=== PATIENT | female | born 1950 | race Caucasian/White ===

== ENCOUNTER → 2016-07-07 | Outpatient (CLI) | payer OTHER | END | disposition home or self-care (01) | LOC: LAB 15:33 | PROVIDERS: ATTEND Obstetrics & Gynecology | DX: E07.9 Disorder of thyroid, unspecified (principal) | CPT/HCPCS: 36415; 84439; 84443; 84480; 84481 ==

== ENCOUNTER → 2016-07-12 | Outpatient (CLI) | payer OTHER ==
[2016-07-12 13:22] LABS: Basophils # (auto) 0 uL; Basophils % (auto) 0.4 % (0.0-2.0); Eosinophils # (auto) 0.1 uL; Eosinophils % (auto) 1.9 % (0.0-7.0); Hematocrit 40.5 % (36.0-46.0); Hemoglobin 13.4 g/dL (12.2-16.2); Lymphocytes # (auto) 2.2 uL; Lymphocytes % (auto) 30.1 % (10.0-50.0); Mean Corpuscular Hemoglobin 29.5 pg (28.0-32.0); Mean Corpuscular Volume 89.4 fL (80.0-100.0); Mean Platelet Volume 8.9 fL (7.4-10.4); Monocytes # (auto) 0.4 uL; Monocytes % (auto) 5.6 % (0.0-12.0); Neutrophils # (auto) 4.6 uL; Platelet Count (auto) 279 10^3/uL (140-450); White Blood Cell 7.4 10^3/uL (4.4-10.8)
== END | disposition home or self-care (01) ==
LOC: LAB 12:18
PROVIDERS: ATTEND Obstetrics & Gynecology
DX: Z01.419 Encounter for gynecological examination (general) (routine) without abnormal findings (principal)
CPT/HCPCS: 36415; 85025; 85049

== ENCOUNTER → 2016-09-13 | Outpatient (CLI) | payer OTHER ==
[~2016-09-13] MED LIST: LEVO25TA6 PO
[2016-09-13 13:13] LABS: Basophils # (auto) 0 uL; Basophils % (auto) 0.7 % (0.0-2.0); Eosinophils # (auto) 0.1 uL; Hematocrit 41.7 % (36.0-46.0); Hemoglobin 13.9 g/dL (12.2-16.2); Lymphocytes # (auto) 1.5 uL; Lymphocytes % (auto) 21.3 % (10.0-50.0); Mean Corpuscular Hemoglobin 29.9 pg (28.0-32.0); Mean Corpuscular Hgb Conc. 33.4 g/dL (32.0-36.0); Mean Corpuscular Volume 89.4 fL (80.0-100.0); Mean Platelet Volume 8.9 fL (7.4-10.4); Monocytes # (auto) 0.4 uL; Monocytes % (auto) 5.8 % (0.0-12.0); Neutrophils # (auto) 4.9 uL; Neutrophils % (auto) 70.2 % (37.0-80.0); Platelet Count (auto) 289 10^3/uL (140-450); Red Cell Distribution Width 13.4 % (11.6-16.0)
[2016-09-13 13:28] LABS: Urine Bilirubin Negative (Negative); Urine Blood Negative /uL (Negative); Urine Color Yellow (Yellow); Urine Glucose Normal (Normal); Urine Ketone Negative (Negative); Urine Urobilinogen Normal (Negative)
[2016-09-13 13:30] LABS: INR 1.02 (0.9-1.15); Partial Thromboplastin Time 30.3 sec (22.64-33.71); Prothrombin Time 10.5 sec (9.37-12.3)
[2016-09-13 13:36] LABS: Urine Nitrite POSITIVE (Negative)
[2016-09-13 13:53] LABS: Albumin 3.9 g/dL (3.4-5.0); BUN/Creatinine Ratio 12.2; Bilirubin, Total 0.7 mg/dL (0.2-1.0); Calcium 8.1 mg/dL (8.5-10.1); Potassium 3.4 mmol/L (3.5-5.1); Total Protein 9.3 g/dL (6.4-8.2)
== END | disposition home or self-care (01) ==
LOC: LAB 10:31
PROVIDERS: ATTEND Obstetrics & Gynecology
DX: Z01.811 Encounter for preprocedural respiratory examination (principal)
CPT/HCPCS: 36415; 80053; 81003; 85025; 85610; 85730; 86850; 86900; 86901

== ENCOUNTER 2016-09-16 06:13 | Inpatient (IN) | payer OTHER ==
[~2016-09-16] VITALS: Ht 170.2 cm; Wt 76.7 kg
[2016-09-16] MEDS ORDERED: ceFAZolin 1GM/50ML D5W 50 ML IV ONE (07:02)
[2016-09-16] MEDS ORDERED: DEXAMETHASONE SOD PHOS 10MG/1ML VIAL INJ ONE (07:20)
[2016-09-16] MEDS ORDERED: ONDANSETRON HCL 4 MG/2 ML VIAL ONE (07:20)
[2016-09-16] MEDS ORDERED: fentaNYL CITRATE 100 MCG/2 ML VL ONE ×2 (07:20→10:09)
[2016-09-16] MEDS ORDERED: MIDAZOLAM HCL 1MG/1ML-2 ML VIAL ONE (07:20)
[2016-09-16] MEDS ORDERED: PROPOFOL 10 MG/ML 20 ML IV ONE (07:21)
[2016-09-16] MEDS ORDERED: KETOROLAC TROMETH 60MG/2ML VIAL IM ONE (07:21)
[2016-09-16] MEDS ORDERED: PHENYLEPHRINE HCL 10 MG/ML VL ONE (07:21)
[2016-09-16] MEDS ORDERED: ROCURONIUM 10MG/ML 10ML VIAL IV ONE (07:24)
[2016-09-16] MEDS ORDERED: CONJ ESTROGENS 0.625MG/GM VAG CRM 30GM PV ONE (07:54)
[2016-09-16] MEDS ORDERED: METHYLENE BLUE 1% 1 ML VIAL IV ONE (07:54)
[2016-09-16] MEDS ORDERED: VASOPRESSIN 20 UNIT/ML ONE (07:55)
[2016-09-16] MEDS ORDERED: NEOSTIGMINE 1 MG/ML INJ (10mg/10ML VIAL) ONE (09:53)
[2016-09-16] MEDS ORDERED: GLYCOPYRROLATE 0.2 MG/ML 1ML VIAL ONE (09:53)
[2016-09-16] MEDS ORDERED: LACTATED RINGER'S 1,000 ML IV SCH (10:01)
[2016-09-16] MEDS ORDERED: MORPHINE SUL PCA 50 ML IV SCH (10:12)
[2016-09-16] MEDS ORDERED: NALOXONE HCL 0.4 MG/ML VIAL IV ONE (10:15)
[2016-09-16] MEDS ORDERED: HYDROmorphone HCL 2 MG/ML VL IV PRN (10:30)
[2016-09-16] MEDS ORDERED: ONDANSETRON HCL 4 MG/2 ML VIAL IV ONE (10:30)
[2016-09-16] MEDS ORDERED: HYDROMORPHONE PCA IN NS 50 ML IV SCH (11:00)
[2016-09-16] MEDS ORDERED: IOHEXOL 300 MG/ML 100ML BOTTLE IJ ONE (11:45)
[2016-09-16 13:00] VITALS: BP 107/67
[2016-09-16] MEDS: ceFAZolin 1GM/50ML D5W 50 ML IV SCH ×2 (13:49→21:45)
[2016-09-16 17:00] VITALS: BP 112/61
[2016-09-16 19:54] LABS: Basophils # (auto) 0 uL; Basophils % (auto) 0.1 % (0.0-2.0); Eosinophils # (auto) 0 uL; Hematocrit 35.4 % (36.0-46.0); Hemoglobin 11.9 g/dL (12.2-16.2); Lymphocytes # (auto) 0.7 uL; Mean Corpuscular Hemoglobin 29.9 pg (28.0-32.0); Mean Corpuscular Hgb Conc. 33.6 g/dL (32.0-36.0); Mean Corpuscular Volume 88.8 fL (80.0-100.0); Mean Platelet Volume 8.1 fL (7.4-10.4); Monocytes # (auto) 0.2 uL; Monocytes % (auto) 1.5 % (0.0-12.0); Neutrophils # (auto) 12.8 uL; Neutrophils % (auto) 93.4 % (37.0-80.0); Platelet Count (auto) 280 10^3/uL (140-450); Red Cell Distribution Width 13.4 % (11.6-16.0); White Blood Cell 13.8 10^3/uL (4.4-10.8)
[2016-09-16 20:00] VITALS: BP 104/57
[2016-09-16 22:00] VITALS: BP 104/57
[2016-09-16] MEDS: ONDANSETRON HCL 4 MG/2 ML VIAL IV PRN (22:17)
[2016-09-17] VITALS (7 sets, daily range): BP systolic 90–111; BP diastolic 51–75
[2016-09-17] MEDS: ceFAZolin 1GM/50ML D5W 50 ML IV SCH (06:05)
[2016-09-17 06:07] LABS: Basophils # (auto) 0 uL; Basophils % (auto) 0.1 % (0.0-2.0); Eosinophils # (auto) 0 uL; Hemoglobin 10.9 g/dL (12.2-16.2); Lymphocytes # (auto) 1.1 uL; Lymphocytes % (auto) 8.6 % (10.0-50.0); Mean Corpuscular Hemoglobin 30.1 pg (28.0-32.0); Mean Corpuscular Hgb Conc. 34.2 g/dL (32.0-36.0); Mean Corpuscular Volume 88.1 fL (80.0-100.0); Mean Platelet Volume 8.7 fL (7.4-10.4); Monocytes # (auto) 0.7 uL; Monocytes % (auto) 5.5 % (0.0-12.0); Neutrophils # (auto) 10.9 uL; Neutrophils % (auto) 85.8 % (37.0-80.0); Platelet Count (auto) 255 10^3/uL (140-450); Red Cell Distribution Width 13.5 % (11.6-16.0); White Blood Cell 12.7 10^3/uL (4.4-10.8)
[2016-09-17] MEDS: ONDANSETRON HCL 4 MG/2 ML VIAL IV PRN (11:11)
[2016-09-17] MEDS: SOD CHL 0.45% WITH 20MEQ KCL 1,000 ML IV SCH ×2 (13:30→22:14)
[2016-09-17] MEDS ORDERED: ACETAMINOPHEN 500 MG TAB PO PRN (16:00)
[2016-09-18] MEDS: SOD CHL 0.45% WITH 20MEQ KCL 1,000 ML IV SCH (04:10)
[2016-09-18 05:04] VITALS: BP 100/61
[2016-09-18 07:28] VITALS: BP 106/60
[2016-09-18 08:20] VITALS: BP 106/60
[2016-09-18 12:41] VITALS: BP 110/58
== END 2016-09-18 13:05 | disposition home or self-care (01) | DRG 743 ==
LOC: SUR 06:13 → WEST WING 06:14
PROVIDERS: ADMIT Obstetrics & Gynecology; ATTEND Obstetrics & Gynecology
PROC: 0JQC0ZZ Repair Pelvic Region Subcutaneous Tissue and Fascia, Open Approach (ICD-10-PCS; 2016-09-16)
PROC: 0JQC0ZZ Repair Pelvic Region Subcutaneous Tissue and Fascia, Open Approach (ICD-10-PCS; 2016-09-16)
PROC: 0TJB8ZZ Inspection of Bladder, Via Natural or Artificial Opening Endoscopic (ICD-10-PCS; 2016-09-16)
PROC: 0UT97ZZ Resection of Uterus, Via Natural or Artificial Opening (ICD-10-PCS; principal; 2016-09-16 07:33)
PROC: 0UTC7ZZ Resection of Cervix, Via Natural or Artificial Opening (ICD-10-PCS; 2016-09-16 07:33)
PROC: 0UQF7ZZ Repair Cul-de-sac, Via Natural or Artificial Opening (ICD-10-PCS; 2016-09-16 07:33)
DX: N81.4 Uterovaginal prolapse, unspecified (principal); N81.10 Cystocele, unspecified; E03.9 Hypothyroidism, unspecified; N81.89 Other female genital prolapse; K59.00 Constipation, unspecified; N81.5 Vaginal enterocele; Z90.49 Acquired absence of other specified parts of digestive tract; Z82.49 Family history of ischemic heart disease and other diseases of the circulatory system
CPT/HCPCS: 36415; 74177; 85025; J0690; J1100; J1885; J2250; J2405; J2704

== ENCOUNTER → 2016-11-01 | Outpatient (CLI) | payer OTHER | END | disposition home or self-care (01) | LOC: LAB 10:13 | PROVIDERS: ATTEND Internal Medicine | DX: E03.9 Hypothyroidism, unspecified (principal) | CPT/HCPCS: 36415; 84439; 84443 ==

== ENCOUNTER → 2017-03-07 | Outpatient (CLI) | payer OTHER ==
[2017-03-07 09:25] LABS: Basophils # (auto) 0 uL; Basophils % (auto) 0.7 % (0.0-2.0); Eosinophils # (auto) 0.2 uL; Eosinophils % (auto) 2.6 % (0.0-7.0); Hematocrit 39.1 % (36.0-46.0); Hemoglobin 13.4 g/dL (12.2-16.2); Lymphocytes # (auto) 1.5 uL; Lymphocytes % (auto) 22.7 % (10.0-50.0); Mean Corpuscular Hemoglobin 30.2 pg (28.0-32.0); Mean Corpuscular Hgb Conc. 34.3 g/dL (32.0-36.0); Mean Corpuscular Volume 88.1 fL (80.0-100.0); Mean Platelet Volume 7.7 fL (7.4-10.4); Monocytes # (auto) 0.5 uL; Monocytes % (auto) 6.9 % (0.0-12.0); Neutrophils # (auto) 4.5 uL; Neutrophils % (auto) 67.1 % (37.0-80.0); Nucleated Red Blood Cells % 0.1 %; Platelet Count (auto) 269 10^3/uL (140-450); Red Cell Distribution Width 14.2 % (11.6-16.0); White Blood Cell 6.8 10^3/uL (4.4-10.8)
[2017-03-07 09:44] LABS: Potassium 3.5 mmol/L (3.5-5.1)
== END | disposition home or self-care (01) ==
LOC: LAB 09:08
PROVIDERS: ATTEND Internal Medicine
DX: E03.9 Hypothyroidism, unspecified (principal); E87.6 Hypokalemia
CPT/HCPCS: 36415; 80061; 84132; 84439; 84443; 85025

== ENCOUNTER → 2018-04-26 | Outpatient (CLI) | payer OTHER, MEDICARE ==
[2018-04-26 14:01] LABS: Basophils # (auto) 0 uL; Basophils % (auto) 0.5 % (0.0-2.0); Eosinophils # (auto) 0.2 uL; Eosinophils % (auto) 3.1 % (0.0-7.0); Hemoglobin 14.2 g/dL (12.2-16.2); Lymphocytes # (auto) 1.6 uL; Lymphocytes % (auto) 24.7 % (10.0-50.0); Mean Corpuscular Hemoglobin 30.4 pg (28.0-32.0); Mean Corpuscular Hgb Conc. 33.8 g/dL (32.0-36.0); Mean Corpuscular Volume 89.9 fL (80.0-100.0); Monocytes # (auto) 0.3 uL; Monocytes % (auto) 5.3 % (0.0-12.0); Neutrophils # (auto) 4.2 uL; Neutrophils % (auto) 66.4 % (37.0-80.0); Platelet Count (auto) 276 10^3/uL (140-450); Red Blood Cells 4.67 10^6/uL (4.0-5.20); Red Cell Distribution Width 13.4 % (11.8-14.3); White Blood Cell 6.4 10^3/uL (4.4-10.8)
[2018-04-26 14:04] LABS: Urine Bacteria NONE SEEN /hpf (None Seen); Urine Blood Negative /uL (Negative); Urine Mucus FEW (None Seen); Urine Specific Gravity 1.021 (1.001-1.035); Urine WBC 4 /hpf (0 - 5)
[2018-04-26 14:16] LABS: Potassium 3.6 mmol/L (3.5-5.1)
[2018-04-26 14:27] LABS: Albumin 4.2 g/dL (3.4-5.0); Bilirubin, Total 1.1 mg/dL (0.2-1.0); Calcium 8.3 mg/dL (8.5-10.1)
== END | disposition home or self-care (01) ==
LOC: LAB 13:01
PROVIDERS: ATTEND Internal Medicine
DX: E03.9 Hypothyroidism, unspecified (principal); E78.5 Hyperlipidemia, unspecified; E83.51 Hypocalcemia; M25.50 Pain in unspecified joint
CPT/HCPCS: 36415; 80053; 80061; 81001; 82043; 84439; 84443; 85025; 85652; 86038; 86200; 86431

== ENCOUNTER → 2018-06-29 | Outpatient (CLI) | payer OTHER, MEDICARE ==
[2018-06-29 10:20] LABS: Basophils # (auto) 0 uL; Basophils % (auto) 0.7 % (0.0-2.0); Eosinophils # (auto) 0.1 uL; Eosinophils % (auto) 1.4 % (0.0-7.0); Hematocrit 40.7 % (36.0-46.0); Hemoglobin 13.8 g/dL (12.2-16.2); Lymphocytes # (auto) 1.5 uL; Lymphocytes % (auto) 22.1 % (10.0-50.0); Mean Corpuscular Hemoglobin 30.3 pg (28.0-32.0); Mean Corpuscular Hgb Conc. 33.8 g/dL (32.0-36.0); Mean Corpuscular Volume 89.4 fL (80.0-100.0); Monocytes # (auto) 0.5 uL; Monocytes % (auto) 7.1 % (0.0-12.0); Neutrophils # (auto) 4.5 uL; Neutrophils % (auto) 68.7 % (37.0-80.0); Platelet Count (auto) 364 10^3/uL (140-450); Red Blood Cells 4.55 10^6/uL (4.0-5.20); Red Cell Distribution Width 13.3 % (11.8-14.3); White Blood Cell 6.6 10^3/uL (4.4-10.8)
[2018-06-29 10:37] LABS: Urine Bacteria NONE SEEN /hpf (None Seen); Urine Blood Negative /uL (Negative); Urine Mucus FEW (None Seen); Urine Specific Gravity 1.018 (1.001-1.035); Urine WBC 2 /hpf (0 - 5)
[2018-06-29 10:41] LABS: Albumin 3.4 g/dL (3.4-5.0); Calcium 7.8 mg/dL (8.5-10.1); Potassium 3.9 mmol/L (3.5-5.1)
[2018-06-29 10:45] LABS: Bilirubin, Total 0.5 mg/dL (0.2-1.0); CRP High Sensitivity 0.18 mg/dL (< 0.3); Total Protein 7.8 g/dL (6.4-8.2)
[2018-06-29 10:49] LABS: Cholesterol 211 mg/dL (< 200); Protein, Urine 14.8 mg/dL (0.0-11.9)
[2018-06-29 10:50] LABS: HDL Cholesterol 29 mg/dL (40-59); Triglycerides 456 mg/dL (< 150)
== END | disposition home or self-care (01) ==
LOC: LAB 09:32
PROVIDERS: ATTEND Internal Medicine
DX: Z11.59 Encounter for screening for other viral diseases (principal); M06.9 Rheumatoid arthritis, unspecified; M32.9 Systemic lupus erythematosus, unspecified; E78.00 Pure hypercholesterolemia, unspecified; E03.9 Hypothyroidism, unspecified; K75.9 Inflammatory liver disease, unspecified; E83.51 Hypocalcemia; M45.0 Ankylosing spondylitis of multiple sites in spine; A15.0 Tuberculosis of lung; I10 Essential (primary) hypertension; D64.9 Anemia, unspecified; M25.50 Pain in unspecified joint; R76.8 Other specified abnormal immunological findings in serum; Z79.899 Other long term (current) drug therapy; Z72.89 Other problems related to lifestyle
CPT/HCPCS: 36415; 80053; 80061; 81001; 82570; 83970; 84156; 84439; 84443; 85025; 85652; 86141; 86200; 86431; 86704; 86706; 86708; 86803; 86812; 87340

== ENCOUNTER → 2019-03-04 | Outpatient (CLI) | payer OTHER, MEDICARE ==
[2019-03-04 10:48] LABS: Cholesterol 202 mg/dL (< 200); HDL Cholesterol 34 mg/dL (40-59); LDL Cholesterol 122 mg/dL (< 100); Triglycerides 301 mg/dL (< 150)
== END | disposition home or self-care (01) ==
LOC: LAB 09:43
PROVIDERS: ATTEND Internal Medicine
DX: E03.9 Hypothyroidism, unspecified (principal); E78.00 Pure hypercholesterolemia, unspecified
CPT/HCPCS: 36415; 80061; 84439; 84443

== ENCOUNTER → 2020-05-18 | Outpatient (CLI) | payer MEDICARE, OTHER ==
[2020-05-18 16:58] LABS: Basophils # (auto) 0 10 ^3/uL (0-0.2); Basophils % (auto) 0.3 % (0.0-2.0); Eosinophils # (auto) 0 10 ^3/uL (0-0.8); Eosinophils % (auto) 0.2 % (0.0-7.0); Hematocrit 37.2 % (36.0-46.0); Hemoglobin 12.7 g/dL (12.2-16.2); Lymphocytes # (auto) 1.3 10 ^3/uL (0.4-5.4); Lymphocytes % (auto) 24.3 % (10.0-50.0); Mean Corpuscular Hemoglobin 30.8 pg (28.0-32.0); Mean Corpuscular Hgb Conc. 34.1 g/dL (32.0-36.0); Mean Corpuscular Volume 90.2 fL (80.0-100.0); Monocytes # (auto) 0.5 10 ^3/uL (0-1.3); Monocytes % (auto) 8.9 % (0.0-12.0); Neutrophils # (auto) 3.5 10 ^3/uL (1.6-8.6); Neutrophils % (auto) 66.3 % (37.0-80.0); Platelet Count (auto) 201 10^3/uL (140-450); Red Blood Cells 4.12 10^6/uL (4.0-5.20); White Blood Cell 5.3 10^3/uL (4.4-10.8)
[2020-05-18 17:50] LABS: BUN/Creatinine Ratio 14.5; Potassium 3.6 mmol/L (3.5-5.1)
[2020-05-18 17:51] LABS: Albumin 3.6 g/dL (3.4-5.0); Bilirubin, Total 0.8 mg/dL (0.2-1.0); Calcium 7.6 mg/dL (8.5-10.1); Total Protein 7.9 g/dL (6.4-8.2)
== END | disposition home or self-care (01) ==
LOC: LAB 16:38
PROVIDERS: ATTEND Internal Medicine
DX: R50.9 Fever, unspecified (principal)
CPT/HCPCS: 36415; 80053; 84443; 85025; 85652; 87804

== ENCOUNTER → 2020-11-16 | Outpatient (CLI) | payer MEDICARE, OTHER ==
[2020-11-16 13:39] LABS: Basophils # (auto) 0 10 ^3/uL (0-0.2); Basophils % (auto) 0.5 % (0.0-2.0); Eosinophils # (auto) 0.1 10 ^3/uL (0-0.8); Eosinophils % (auto) 1.4 % (0.0-7.0); Hematocrit 38.6 % (36.0-46.0); Hemoglobin 13.1 g/dL (12.2-16.2); Lymphocytes # (auto) 1.7 10 ^3/uL (0.4-5.4); Lymphocytes % (auto) 27.6 % (10.0-50.0); Mean Corpuscular Hemoglobin 30.6 pg (28.0-32.0); Monocytes # (auto) 0.3 10 ^3/uL (0-1.3); Monocytes % (auto) 5.5 % (0.0-12.0); Neutrophils # (auto) 4.1 10 ^3/uL (1.6-8.6); Nucleated Red Blood Cells % 0.1 %; Platelet Count (auto) 259 10^3/uL (140-450); Red Cell Distribution Width 13.3 % (11.8-14.3); White Blood Cell 6.3 10^3/uL (4.4-10.8)
[2020-11-16 13:54] LABS: Urine Bacteria FEW /hpf (None Seen); Urine Blood Negative /uL (Negative); Urine Mucus FEW (None Seen); Urine WBC 13 /hpf (0 - 5)
[2020-11-16 14:07] LABS: Albumin 3.5 g/dL (3.4-5.0); Calcium 8.3 mg/dL (8.5-10.1); Potassium 3.5 mmol/L (3.5-5.1)
[2020-11-16 14:11] LABS: BUN/Creatinine Ratio 18.3; Bilirubin, Total 0.7 mg/dL (0.2-1.0); Total Protein 7.8 g/dL (6.4-8.2)
== END | disposition home or self-care (01) ==
LOC: LAB 13:11
PROVIDERS: ATTEND Internal Medicine
DX: E03.9 Hypothyroidism, unspecified (principal); E78.1 Pure hyperglyceridemia
CPT/HCPCS: 36415; 80053; 80061; 81001; 84439; 84443; 85025; 85652; 86200; 86431

== ENCOUNTER 2021-08-09 02:14 | Emergency (ER) | payer MEDICARE, OTHER ==
[~2021-08-09] VITALS: Ht 167.6 cm; Wt 67.6 kg
[2021-08-09 02:14] VITALS: BP 119/62
== END 2021-08-09 04:06 | disposition left against medical advice (07) ==
LOC: ER 02:14
DX: R05.9 Cough, unspecified (principal); R07.0 Pain in throat; H92.09 Otalgia, unspecified ear; Z53.21 Procedure and treatment not carried out due to patient leaving prior to being seen by health care provider
CPT/HCPCS: 71045

== ENCOUNTER → 2021-08-11 | Outpatient (CLI) | payer MEDICARE, OTHER ==
[2021-08-11 10:06] LABS: Urine Bacteria NONE SEEN /hpf (None Seen); Urine Blood Negative /uL (Negative); Urine Mucus FEW (None Seen); Urine Specific Gravity 1.012 (1.001-1.035); Urine WBC 2 /hpf (0 - 5)
[2021-08-11 12:32] LABS: Basophils # (auto) 0 10 ^3/uL (0-0.2); Basophils % (auto) 0.7 % (0.0-2.0); Eosinophils # (auto) 0.2 10 ^3/uL (0-0.8); Eosinophils % (auto) 3.3 % (0.0-7.0); Hematocrit 37.6 % (36.0-46.0); Hemoglobin 12.6 g/dL (12.2-16.2); Lymphocytes # (auto) 1.4 10 ^3/uL (0.4-5.4); Lymphocytes % (auto) 25.9 % (10.0-50.0); Mean Corpuscular Hemoglobin 30.1 pg (28.0-32.0); Mean Corpuscular Hgb Conc. 33.6 g/dL (32.0-36.0); Mean Corpuscular Volume 89.7 fL (80.0-100.0); Monocytes # (auto) 0.4 10 ^3/uL (0-1.3); Monocytes % (auto) 7.7 % (0.0-12.0); Neutrophils # (auto) 3.3 10 ^3/uL (1.6-8.6); Neutrophils % (auto) 62.4 % (37.0-80.0); Nucleated Red Blood Cells % 0.1 %; Red Blood Cells 4.19 10^6/uL (4.0-5.20); Red Cell Distribution Width 13.3 % (11.8-14.3); White Blood Cell 5.4 10^3/uL (4.4-10.8)
[2021-08-11 13:03] LABS: Potassium 3.4 mmol/L (3.5-5.1)
[2021-08-11 13:23] LABS: Albumin 3.7 g/dL (3.4-5.0); BUN/Creatinine Ratio 16.7; Bilirubin, Total 0.8 mg/dL (0.2-1.0); Calcium 8.5 mg/dL (8.5-10.1); Total Protein 7.5 g/dL (6.4-8.2)
== END | disposition home or self-care (01) ==
LOC: LAB 09:28
PROVIDERS: ATTEND Internal Medicine
DX: E03.9 Hypothyroidism, unspecified (principal)
CPT/HCPCS: 36415; 80053; 80061; 81001; 84439; 84443; 85025; 85652

== ENCOUNTER 2021-10-14 18:26 | Emergency (ER) | payer MEDICARE, OTHER ==
[~2021-10-14] VITALS: Ht 167.6 cm; Wt 62.6 kg
[2021-10-14 18:27] VITALS: BP 137/73
[2021-10-14] MEDS ORDERED: ASPirin 81 mg TAB PO ONE (19:00)
[2021-10-14] MEDS ORDERED: PANTOPRAZOLE 40 MG/10 ML VIAL INJ IV ONE (19:00)
== END 2021-10-14 19:26 | disposition left against medical advice (07) ==
LOC: ER 18:31
DX: R07.89 Other chest pain (principal); Z90.49 Acquired absence of other specified parts of digestive tract; Z90.710 Acquired absence of both cervix and uterus
CPT/HCPCS: 71046; 93005

== ENCOUNTER → 2022-03-04 | Outpatient (CLI) | payer MEDICARE, OTHER | END | disposition home or self-care (01) | LOC: LAB 11:19 | PROVIDERS: ATTEND Internal Medicine | DX: E03.9 Hypothyroidism, unspecified (principal); Z12.11 Encounter for screening for malignant neoplasm of colon | CPT/HCPCS: 36415; 84132; 84439; 84443 ==

== ENCOUNTER → 2022-05-25 | Outpatient (CLI) | payer MEDICARE, OTHER ==
[2022-05-25 19:08] LABS: Urine Blood TRACE /uL (Negative); Urine Specific Gravity 1.018 (1.001-1.035)
[2022-05-25 19:11] LABS: Urine Bacteria MODERATE /hpf (None Seen)
== END | disposition home or self-care (01) ==
LOC: LAB 12:46
PROVIDERS: ATTEND Internal Medicine
DX: N39.0 Urinary tract infection, site not specified (principal)
CPT/HCPCS: 81001

== ENCOUNTER → 2022-11-01 | Outpatient (CLI) | payer MEDICARE, OTHER ==
[2022-11-01 11:16] LABS: Basophils # (auto) 0 10 ^3/uL (0-0.2); Basophils % (auto) 0.4 % (0.0-2.0); Eosinophils # (auto) 0.1 10 ^3/uL (0-0.8); Eosinophils % (auto) 1.9 % (0.0-7.0); Hematocrit 37.4 % (36.0-46.0); Hemoglobin 12.7 g/dL (12.2-16.2); Lymphocytes # (auto) 1.4 10 ^3/uL (0.4-5.4); Lymphocytes % (auto) 25.1 % (10.0-50.0); Mean Corpuscular Hemoglobin 30.5 pg (28.0-32.0); Mean Corpuscular Volume 89.7 fL (80.0-100.0); Monocytes # (auto) 0.4 10 ^3/uL (0-1.3); Monocytes % (auto) 7.4 % (0.0-12.0); Neutrophils # (auto) 3.5 10 ^3/uL (1.6-8.6); Neutrophils % (auto) 65.2 % (37.0-80.0); Nucleated Red Blood Cells % 0.1 %; Red Blood Cells 4.17 10^6/uL (4.0-5.20); Red Cell Distribution Width 13.7 % (11.8-14.3); White Blood Cell 5.4 10^3/uL (4.4-10.8)
[2022-11-01 11:34] LABS: Albumin 3.5 g/dL (3.4-5.0); Calcium 8.4 mg/dL (8.5-10.1); Potassium 3.8 mmol/L (3.5-5.1)
[2022-11-01 11:40] LABS: BUN/Creatinine Ratio 19.2 (10.0-20.0); Bilirubin, Total 0.6 mg/dL (0.2-1.0); Total Protein 7.4 g/dL (6.4-8.2)
[2022-11-01 11:51] LABS: Urine Bacteria FEW /hpf (None Seen); Urine Blood TRACE /uL (Negative); Urine Mucus FEW (None Seen); Urine WBC 89 /hpf (0 - 5)
== END | disposition home or self-care (01) ==
LOC: LAB 10:37
PROVIDERS: ATTEND Internal Medicine
DX: E03.9 Hypothyroidism, unspecified (principal)
CPT/HCPCS: 36415; 80053; 80061; 81001; 84439; 84443; 85025; 85652; 86200; 86431

== ENCOUNTER → 2023-05-01 | Outpatient (CLI) | payer MEDICARE, OTHER | END | disposition home or self-care (01) | LOC: LAB 09:42 | PROVIDERS: ATTEND Internal Medicine | DX: E03.9 Hypothyroidism, unspecified (principal); E83.51 Hypocalcemia | CPT/HCPCS: 36415; 82310; 83970; 84439; 84443 ==

== ENCOUNTER → 2024-02-05 | Outpatient (CLI) | payer MEDICARE, OTHER ==
[2024-02-05 11:04] LABS: Basophils # (auto) 0 10 ^3/uL (0-0.2); Basophils % (auto) 0.4 % (0.0-2.0); Eosinophils # (auto) 0.1 10 ^3/uL (0-0.8); Eosinophils % (auto) 1.4 % (0.0-7.0); Hematocrit 35.9 % (36.0-46.0); Hemoglobin 12.2 g/dL (12.2-16.2); Lymphocytes # (auto) 1.2 10 ^3/uL (0.4-5.4); Lymphocytes % (auto) 21.1 % (10.0-50.0); Mean Corpuscular Hemoglobin 31.2 pg (28.0-32.0); Mean Corpuscular Hgb Conc. 33.9 g/dL (32.0-36.0); Monocytes # (auto) 0.5 10 ^3/uL (0-1.3); Monocytes % (auto) 9.4 % (0.0-12.0); Neutrophils # (auto) 3.9 10 ^3/uL (1.6-8.6); Neutrophils % (auto) 67.7 % (37.0-80.0); Nucleated Red Blood Cells % 0.1 %; Red Cell Distribution Width 13.6 % (11.8-14.3); White Blood Cell 5.8 10^3/uL (4.4-10.8)
[2024-02-05 11:13] LABS: Urine Bacteria FEW /hpf (None Seen); Urine Blood Negative /uL (Negative); Urine Color Yellow (Yellow); Urine Mucus FEW (None Seen); Urine Protein, UAD TRACE (Negative); Urine Urobilinogen Normal (Negative); Urine WBC 9 /hpf (0 - 5); Urine pH 5.5 (5.0-9.0)
[2024-02-05 11:15] LABS: Urine Clarity Hazy (Clear)
[2024-02-05 11:57] LABS: Alanine Aminotransferase 10 U/L (7-40); Albumin 4.2 g/dL (3.2-4.8); Alkaline Phosphatase 89 U/L (46-116); Anion Gap 5 (5-15); Aspartate Aminotransferase 13 U/L (13-40); BUN/Creatinine Ratio 14.8 (10.0-20.0); Blood Urea Nitrogen 12 mg/dL (9-23); Calcium 9.1 mg/dL (8.7-10.4); Carbon Dioxide 30 mmol/L (20-30); Chloride 106 mmol/L (98-107); Cholesterol 185 mg/dL (< 200); Glucose 100 mg/dL (74-106); HDL Cholesterol 36 mg/dL (40-59); LDL Cholesterol 126 mg/dL (< 100); Potassium 3.8 mmol/L (3.5-5.1); Sodium 141 mmol/L (136-145); Triglycerides 135 mg/dL (< 150)
[2024-02-05 11:58] LABS: Bilirubin, Total 0.9 mg/dL (0.2-1.0); Total Protein 7.3 g/dL (5.7-8.2)
[2024-02-05 12:01] LABS: Erythrocyte Sedimentation Rate 58 mm/hr (0-20)
== END | disposition home or self-care (01) ==
LOC: LAB 10:22
PROVIDERS: ATTEND Internal Medicine
DX: Z12.11 Encounter for screening for malignant neoplasm of colon (principal); E03.9 Hypothyroidism, unspecified
CPT/HCPCS: 36415; 80053; 80061; 81001; 84439; 84443; 85025; 85652

== ENCOUNTER 2024-08-30 07:25 | Day surgery (SDC) | payer MEDICARE, OTHER ==
[2024-08-23 15:10] LABS: Urine Bacteria None Seen /hpf (None Seen)
[2024-08-23 15:18] LABS: Basophils # (auto) 0 10 ^3/uL (0-0.2); Basophils % (auto) 0.5 % (0.0-2.0); Eosinophils # (auto) 0.1 10 ^3/uL (0-0.8); Eosinophils % (auto) 1.4 % (0.0-7.0); Hematocrit 36.3 % (36.0-46.0); Hemoglobin 12.4 g/dL (12.2-16.2); Lymphocytes # (auto) 1.3 10 ^3/uL (0.4-5.4); Lymphocytes % (auto) 21.3 % (10.0-50.0); Mean Corpuscular Hemoglobin 30.7 pg (28.0-32.0); Mean Corpuscular Volume 90.2 fL (80.0-100.0); Monocytes # (auto) 0.6 10 ^3/uL (0-1.3); Monocytes % (auto) 9.9 % (0.0-12.0); Neutrophils # (auto) 4.1 10 ^3/uL (1.6-8.6); Neutrophils % (auto) 66.9 % (37.0-80.0); Platelet Count (auto) 233 10^3/uL (140-450); Red Blood Cells 4.02 10^6/uL (4.0-5.20); Red Cell Distribution Width 14.1 % (11.8-14.3); White Blood Cell 6.2 10^3/uL (4.4-10.8)
[2024-08-23 15:32] LABS: INR 0.99 (0.9-1.15); Partial Thromboplastin Time 30.1 SEC (24.5-34.5); Prothrombin Time 10.5 sec (9.3-11.8)
[2024-08-23 15:52] LABS: Urine Blood Negative /uL (Negative); Urine Clarity Clear (Clear); Urine Color Yellow (Yellow); Urine Mucus FEW (None Seen); Urine Protein, UAD TRACE (Negative); Urine Specific Gravity 1.026 (1.001-1.035); Urine Squamous Epithelial Cell FEW /hpf (<5); Urine Urobilinogen Normal (Negative); Urine WBC 1 /HPF (0-5); Urine pH 5.5 (5.0-9.0)
[2024-08-23 16:08] LABS: Alkaline Phosphatase 81 U/L (46-116); Anion Gap 5 (5-15); BUN/Creatinine Ratio 22.1 (10.0-20.0); Blood Urea Nitrogen 19 mg/dL (9-23); Chloride 102 mmol/L (98-107); Glucose 96 mg/dL (74-106); Potassium 3.9 mmol/L (3.5-5.1); Sodium 139 mmol/L (136-145); Total Protein 7.3 g/dL (5.7-8.2)
[2024-08-23 16:09] LABS: Albumin 4.1 g/dL (3.2-4.8)
[2024-08-23 16:10] LABS: Aspartate Aminotransferase 16 U/L (13-40); Bilirubin, Total 0.4 mg/dL (0.2-1.0)
[2024-08-23 16:12] LABS: Alanine Aminotransferase 9 U/L (7-40); Carbon Dioxide 32 mmol/L (20-31)
[~2024-08-30] VITALS: Ht 167.6 cm; Wt 60.8 kg
[2024-08-30] MEDS ORDERED: KETAMINE 50mg/ML 1ml syringe ONE (08:40)
[2024-08-30] MEDS ORDERED: MIDAZOLAM HCL 2MG/2ML 2ml VIAL (1mg/ml) ONE (08:41)
[2024-08-30] MEDS ORDERED: SODIUM CHLORIDE LOCK 10 ML ONE (08:41)
[2024-08-30] MEDS ORDERED: fentaNYL CITRATE 100 MCG/2 ML VL ONE (08:41)
[2024-08-30] MEDS ORDERED: ONDANSETRON HCL 4 MG/2 ML VIAL ONE (08:41)
[2024-08-30] MEDS ORDERED: PROPOFOL 10 MG/ML 20 ML IV ONE (08:41)
[2024-08-30] MEDS ORDERED: SIMETHICONE 40 MG/0.6 ML ORAL DROP ONE (08:55)
[2024-08-30] MEDS ORDERED: LIDOCAINE VISCOUS 2% 15ML UD ONE (08:55)
[2024-08-30 09:18] VITALS: PULSE 71; RESP 14; TEMP 97.2; O2SAT 100
[2024-08-30 09:45] VITALS: BP 106/60; PULSE 71; RESP 17; O2SAT 71
--- NOTE | 2024-08-30 10:08 | DVHOP2 ---
Operative Report DATE OF OPERATION: 08/30/24 PROCEDURE: Upper Endoscopy with biopsy. PREOPERATIVE INDICATION: The patient is a 73 -year-old female undergoing endoscopy for GERD and dyspepsia POSTOPERATIVE DIAGNOSES: 1. Rsli-[id number]-zeoowjkm gastritis with hyperemia erythema and mucosal nodularity from which biopsies were obtained PROCEDURE PERFORMED BY: Fozia Richardson GI NURSE: Eduarda SCOPE: Olympus videoendoscope. ASA CLASS: 2 PREOPERATIVE MEDICATIONS: Mac sedation, Dr. Estrada PROCEDURE IN DETAIL: After obtaining an informed consent, the patient was placed on left lateral decubitus position. The patient was then sedated with the above medications. A bite block was placed between her teeth. The endoscope was then passed through the oropharynx, into the esophagus, and through the stomach and pylorus up to the second and third part of the duodenum. The endoscope was then withdrawn. The 2nd and 3rd part of the duodenum and the duodenal bulb were normal. Duodenal biopsies were obtained. The pre-pyloric area antrum and body showed [id number] gastritis with hyperemia erythema and superficial mucosal nodularity. On retroflexion the fundus and cardia were normal. Patient had a somewhat J- shaped stomach. Gastric biopsies were obtained. The endoscope was then withdrawn into distal esophagus where the patient had no significant hiatal hernia and no esophagitis The remaining distal and proximal esophagus and oropharynx were unremarkable The patient tolerated the procedure well without difficulty. COMPLICATIONS : None SPECIMENS: Duodenal biopsies Gastric biopsies DISPOSITION: Stable D/C to home PLAN: 1. Await for biopsy result 2. Will place pt on Protonix 40 mg p.o. daily 3. Trial of Carafate 1 g p.o. q.h.s. 4. DC aspirin NSAIDs smoking alcohol 5. Resume GI soft diet advance as tolerated 6. Outpatient follow up with me in 4-6 weeks to review results and discuss further management FOZIA RICHARDSON MD Aug 30, 2024 10:08
--- NOTE | 2024-08-30 10:11 | DVHOP2 ---
Operative Report DATE OF OPERATION: 08/30/24 PROCEDURE: Diagnostic Colonoscopy. PREOPERATIVE INDICATION: The patient is a 73 -year-old female undergoing colonoscopy with change in bowel habit for colon cancer screening POSTOPERATIVE DIAGNOSES: 1. Moderate left colon diverticular disease with multiple wide mouth diverticu lar openings noted 2. Trace to 1+ internal hemorrhoids otherwise essentially completely normal colonoscopy examination up to the cecum and terminal ileum PROCEDURE PERFORMED BY: Fozia Richardson M.D. SCOPE: Olympus videocolonoscope. ASA CLASS: 2. PREOPERATIVE MEDICATIONS: Dr. Sean Collier PROCEDURE IN DETAIL: After obtaining an informed consent, the patient was placed on left lateral decubitus position. She was then sedated with the above medications. A rectal examination was performed that was normal. The colonoscope was then passed through the anus into the rectosigmoid and through the descending, transverse, and ascending colon up to the cecum with visualization of the appendiceal orifice, base of the cecum and the ileocecal valve. The colonoscope was then withdrawn. The distal 5-10 cm of the terminal ileum were normal No polyps or masses were seen. There was no colitis. Patient had moderate left colon diverticular disease. There was multiple wide-mouth diverticular openings both in the descending and the sigmoid colon area. On retroflexion and straight on view she had trace to 1+ internal hemorrhoids. The patient tolerated the procedure well without difficulty. WITHDRAWAL TIME: 7 minute QUALITY OF THE PREP: [place] Bowel Prep score: 9. COMPLICATIONS : None SPECIMENS: None DISPOSITION: Stable D/C to home PLAN: 1. Repeat colonoscopy in 10 years 2. Resume GI soft diet advance as tolerated 3. Increase fluid and fiber intake 4. Outpatient follow up with me in 4-6 weeks to review results and discuss further management FOZIA RICHARDSON MD Aug 30, 2024 10:11
== END 2024-08-30 10:00 | disposition home or self-care (01) ==
LOC: GI 07:25
PROVIDERS: ATTEND Internal Medicine Gastroenterology
DX: R19.4 Change in bowel habit (principal); K57.30 Diverticulosis of large intestine without perforation or abscess without bleeding; K64.0 First degree hemorrhoids; K29.50 Unspecified chronic gastritis without bleeding; K31.A0 Gastric intestinal metaplasia, unspecified; K21.9 Gastro-esophageal reflux disease without esophagitis; F17.200 Nicotine dependence, unspecified, uncomplicated; B96.81 Helicobacter pylori [H. pylori] as the cause of diseases classified elsewhere; N18.1 Chronic kidney disease, stage 1; E03.9 Hypothyroidism, unspecified; Z98.890 Other specified postprocedural states
CPT/HCPCS: 36415; 43239; 45378; 80053; 81001; 85025; 85610; 85730; 88305; 88312; 88342; J2250; J2405; J2704; J3010; J7030

== ENCOUNTER 2024-09-02 17:16 | Inpatient (IN) | payer MEDICARE, OTHER ==
[~2024-09-02] VITALS: Ht 167.6 cm; Wt 64.8 kg
--- NOTE | 2024-09-02 17:50 | ED.PDOC ---
HPI Comments HPI: 73-year-old female presents with a chief complaint of midsternal chest pain, SOB, bilateral feet and hand hand numbness which has resolved prior to my evaluation, and chills. Patient reports that she currently does not have chest pain at this time. Patient mentions that the SOB is constant, but the chest pain is intermittent. Patient does not require supplemental oxygen, and is currently sating at 100% on room air. That is not go to the doctor much. PAST MEDICAL HISTORY: ANXIETY, THYROID DISEASE PAST SURGICAL HISTORY: CHOLECYSTECTOMY, HYSTERECTOMY, ENDOSCOPY, COLONOSCOPY SOCIAL HISTORY: NONE ALLERGIES: NONE REPORTED HPI: Poor Historian. REVIEW OF SYSTEMS: CONSTITUTIONAL: Denies acute: fever, diaphoresis, chills, generalized weakness. HEAD: Denies acute: headache, photophobia Eyes: Denies acute: Double vision, vision loss, eye pain, eye discharge. EARS: Denies acute: tinnitus, hearing loss, ear discharge, ear pain, THROAT: Denies acute: sore throat, swelling, difficulty swallowing , pain with swallowing, change in voice. NECK: Denies acute: neck pain, neck swelling, stiff neck. HEART: Denies acute : , palpitations, LUNGS: Denies acute: wheezing, cough, hemoptysis ABDOMEN: Denies acute: abdominal pain, Nausea, Vomiting, diarrhea, melena , hematemesis, hematochezia SKIN: Denies acute: rash, redness, lesions, itchiness. EXTREMITIES: Denies acute: calf pain, weakness, denies pain in extremity. Denies acute: Low back pain. Neuro: Denies acute: focal neurological deficit, motor or sensory focal neurological deficit, tremors, seizure like activity, confusion, dizziness, change in mental status, loss of bowel or bladder function, cauda equina like symptoms. : Denies acute: dysuria, hematuria, flank pain, increase in urinary frequency. PSYCH: Denies acute: hallucination, suicidal ideation, homicidal ideation. FEMALE: Denies acute: abnormal vaginal bleeding, foul odor, unusual discharge. PHYSICAL EXAM: General: no acute distress, awake and alert. Head: normocephalic, atraumatic. Neck: supple, trachea is midline, no swelling. Throat: Normal phonation. Eyes:, no erythema, no purulent discharge, no proptosis, no icterus. Heart: regular rate, regular rhythm, no significant murmur appreciated. Lungs: no apparent respiratory distress, Able to speak in full sentences. No wheezing, no rhonchi, no crackles. No stridors Clear to auscultation bilaterally. Abdomen: non tender to palpation, non distended, soft, no guarding, no rebound, + bowel sounds. Neuro: Awake, Alert, oriented to name, self, situation, follows commands GCS=15. Speech is normal. Skin: no petechia, no purpura, no cyanosis, non-pale, not jaundice. Lower extremities: --no - Pitting edema no deformity, no focal swelling, no calf TTP. Makes eye contact. moves all four extremities. Face: no apparent facial droop. . Ambulating in the ED independently. 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 Was a procedure done?: No CP Differential Dx Differential Diagnosis: N/A Differential Diagnosis: Other (Ddx include but not limitied to gastritis, musculoskeletal pain, radiculopathy, atypical chest pain, dissection, aneurysm, ACS, unstable angina, hiatal hernia, GERD, anxiety, costochondritis, PE, pneumothroax, neoplasm, cardiac ischemia, drug abuse, anemia.) X-Ray, Labs, Meds, VS Vital Signs Date Time Temp Pulse Resp B/P (MAP) Pulse Ox O2 Delivery O2 Flow Rate FiO2 09/02/24 17:29 98.0 93 17 131/81 (98) 100 09/02/24 17:24 91 Lab Test 09/02/24 18:53 09/02/24 17:47 09/02/24 17:45 09/02/24 17:39 Range/Units Troponin I High Sensitivity 11 8 </=34 ng/L Thyroid Stimulating Hormone (TSH) 8.72 H 0.55-4.78 uIU/mL Urine Color Colorless Yellow Urine Clarity Clear Clear Urine pH 5.5 5.0-9.0 Urine Specific [place] 1.003 1.001-1.035 Urine Protein Negative Negative Urine Ketones Negative Negative Urine Blood Negative Negative /uL Urine Nitrite Negative Negative Urine Bilirubin Negative Negative Urine Urobilinogen Normal Negative mg/dL Urine Leukocyte Esterase Negative Negative /uL Urine RBC <1 0 - 4 /hpf Urine Microscopic WBC < 1 0-5 /HPF Urine Squamous Epithelial Cells Few <5 /hpf Urine Bacteria None seen None Seen /hpf Urine Glucose Normal Normal mg/dL Influenza Type A Antigen Negative Negative Influenza Type B Antigen Negative Negative SARS-CoV-2 Antigen (Rapid) Negative NEGATIVE White Blood Count 6.7 4.4-10.8 10^3/uL Red Blood Count 3.98 L 4.0-5.20 10^6/uL Hemoglobin 12.6 12.2-16.2 g/dL Hematocrit 35.5 L 36.0-46.0 % Mean Corpuscular Volume 89.3 80.0-100.0 fL Mean Corpuscular Hemoglobin 31.6 28.0-32.0 pg Mean Corpuscular Hemoglobin Concent 35.4 32.0-36.0 g/dL Red Cell Distribution Width 13.6 11.8-14.3 % Platelet Count 238 140-450 10^3/uL Mean Platelet Volume 8.6 6.9-10.8 fL Neutrophils (%) (Auto) 64.3 37.0-80.0 % Lymphocytes (%) (Auto) 25.7 10.0-50.0 % Monocytes (%) (Auto) 8.9 0.0-12.0 % Eosinophils (%) (Auto) 0.8 0.0-7.0 % Basophils (%) (Auto) 0.3 0.0-2.0 % Neutrophils # (Auto) 4.3 1.6-8.6 10 ^3/uL Lymphocytes # (Auto) 1.7 0.4-5.4 10 ^3/uL Monocytes # (Auto) 0.6 0-1.3 10 ^3/uL Eosinophils # (Auto) 0.1 0-0.8 10 ^3/uL Basophils # (Auto) 0 0-0.2 10 ^3/uL Nucleated Red Blood Cells 0.1 % Sodium Level 140 136-145 mmol/L Potassium Level 3.3 L 3.5-5.1 mmol/L Chloride Level 103 98-107 mmol/L Carbon Dioxide Level 27 20-31 mmol/L Anion Gap 10 5-15 Blood Urea Nitrogen 12 9-23 mg/dL Creatinine 0.76 0.550-1.02 mg/dL Glomerular Filtration Rate Calc 84 >90 mL/min BUN/Creatinine Ratio 15.8 10.0-20.0 Serum Glucose 113 H 74-106 mg/dL Calcium Level 9.4 8.7-10.4 mg/dL Magnesium Level 2.2 1.6-2.6 mg/dL Total Bilirubin 0.6 0.2-1.0 mg/dL Aspartate Amino Transferase (AST) 19 13-40 U/L Alanine Aminotransferase (ALT) 18 7-40 U/L Alkaline Phosphatase 81 46-116 U/L B-Type Natriuretic Peptide 15.48 0-100 pg/mL Total Protein 7.2 5.7-8.2 g/dL Albumin 4.3 3.2-4.8 g/dL Current Medications Medications (Trade) Dose Ordered Sig/Lazaro Route Start Time Stop Time Status Last Admin Ceftriaxone Sodium 50 ml @ 100 mls/hr ONCE ONCE IV 09/02/24 18:45 09/02/24 19:14 DC 09/02/24 22:46 [place] [id number] Ph: [phone] DIAGNOSTIC IMAGING Diagnostic Imaging Report : [id number] Signed PATIENT: ANDREW NGUYEN ACCT: [id number] UNIT: [id number] : 1950 LOC: OVERFLOW ROOM / BED: [facility] [place] / A AGE / SEX: 73 / F ADM STATUS: ADM IN SERVICE 01 ORDERING PHYSICIAN: ARELIS SMITH PROCEDURE(s): HWOCT - HEAD WITHOUT CONTRAST REASON: Upper and lower extremity intermittent numbness ORDER NUMBER(s): [id number], ACCESSION NUMBER(s): [id number] CT HEAD WITHOUT CONTRAST INDICATION: Upper and lower extremity intermittent numbness EXAM DATE: 09/02/2024 08:08 PM COMPARISON: None RADIATION DOSE: CTDIvol: 50.55 mGy, DLP: 911.35 mGy*cm PROCEDURE: CT scans of the head were obtained from the vertex to the skull base. Sagittal and coronal reconstructions were provided. All CT scans at this medical facility are performed using dose modulation techniques as appropriate to a performed exam including the following: Automated exposure control was utilized; adjustment of the MA and/or KV according to patient size; and use of iterative reconstruction technique. FINDINGS: . There are atrophic changes which appear to be more prominent in the temporal lobes. There is no evidence for stroke. 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 There are no midline shifts or focal mass effect or evidence for intracranial hemorrhage. Paranasal sinuses and mastoid air cells are very well aerated and unremarkable. Internal auditory canals and external auditory canals and middle ears are unremarkable. Calvarium is intact. Midline structures are unremarkable including the pituitary the hippocampal structures are symmetric. IMPRESSION: 1. Mild cortical atrophy which appears to be most prominent in the temporal lobes bilaterally. No acute findings. Patient May benefit from MRI exam ATED BY: RAGHAVENDRA WAGNER MD DICTATED DATE/TIME: 09/02/242047 SIGNED BY: RAGHAVENDRA WAGNER MD SIGNED DATE/TIME: 09/02/242047 CC: [place] [id number] Ph: [phone] DIAGNOSTIC IMAGING Diagnostic Imaging Report : [id number] Signed PATIENT: ANDREW NGUYEN ACCT: [id number] UNIT: [id number] : 1950 LOC: ER ROOM / BED: / AGE / SEX: 73 / F ADM STATUS: REG ER SERVICE 36 ORDERING PHYSICIAN: NESSA FERNANDEZ DO PROCEDURE(s): CXRP - CHEST PORTABLE REASON: cp ORDER NUMBER(s): [id number], ACCESSION NUMBER(s): [id number] EXAM: XR Chest, 1 View CLINICAL INDICATION: cp TECHNIQUE: Frontal view of the chest. COMPARISON: CHEST XRAY 1 VIEW on DOS: 08/09/21 FINDINGS: LUNGS AND PLEURAL SPACES: Right basilar atelectasis or pneumonia. No pneumothorax. HEART: Unremarkable. No cardiomegaly. MEDIASTINUM: Unremarkable. Normal mediastinal contour. BONES/JOINTS: Unremarkable. No acute fracture. OTHER FINDINGS: . IMPRESSION: Right basilar atelectasis or pneumonia. ATED BY: EMORY HEATON MD DICTATED DATE/TIME: 09/02/241815 SIGNED BY: EMORY HEATON MD SIGNED DATE/TIME: 09/02/241815 CC: Time of 1ST Reevaluation: 18:04 Reevaluation 1ST: Unchanged Patient Education/Counseling: Diagnosis, Treatment Family Education/Counseling: Other Comments Patient presented with the above HPI.--cardiac----workup was initiated. patient was found with the above mentioned diagnosis. the following medications were ordered: please refer to order lists of meds and tests obtained by myself Dr. Fernandez. Patient ED course and VS have been stabilized. Patient has been reassessed in the ED and remained in a stable condition. Pertinent incidental findings were discussed with the patient and/or family. Patient/family voices understanding and is agreeable with plan. Patient has been observed in the ED adequate length of time to insure improvem ent/stability. Escalation of care considered: Consideration of escalation to observation or admission Patient was ADMITTED to the medicine team for further evaluation and treatment of their presentation. X-ray suggested possible pneumonia. Antibiotics was initiated All the reports of any imaging studies that were ordered by myself were reviewed by myself. Departure 1 Departure Time of Disposition: 18:59 Impression: Primary Impression: Acute chest pain Additional Impression: Pneumonia Disposition: 09 ADMITTED INPATIENT Admit to: [facility] Condition: Guarded Discharged With: Self Critical Care Note Critical Care Time?: No Heart Score Heart Score: Heart Score Response (Comments) Value History Moderate Suspicious 1 EKG Normal 0 Age >65 2 Risk Factors 1 or 2 risk factors 1 Troponin Normal limit 0 Total 4 I personally scribed for NESSA FERNANDEZ DO ([email or web address]) on 09/02/24 at 17:50. Electronically submitted by Reymundo Moctezuma ([email or web address]). I personally scribed for NESSA FERNANDEZ DO ([email or web address]) on 09/03/24 at 01:04. Electronically submitted by Rickey Kenny ([email or web address]). NESSA FERNANDEZ DO Sep 02, 2024 17:50
[2024-09-02 18:05] LABS: Urine Bacteria None Seen /hpf (None Seen)
--- NOTE | 2024-09-02 18:19 | DVH ---
EXAM: XR Chest, 1 View CLINICAL INDICATION: cp TECHNIQUE: Frontal view of the chest. COMPARISON: CHEST XRAY 1 VIEW on DOS: 08/09/21 FINDINGS: LUNGS AND PLEURAL SPACES: Right basilar atelectasis or pneumonia. No pneumothorax. HEART: Unremarkable. No cardiomegaly. MEDIASTINUM: Unremarkable. Normal mediastinal contour. BONES/JOINTS: Unremarkable. No acute fracture. OTHER FINDINGS: . IMPRESSION: Right basilar atelectasis or pneumonia.
[2024-09-02 18:43] LABS: Basophils # (auto) 0 10 ^3/uL (0-0.2); Basophils % (auto) 0.3 % (0.0-2.0); Eosinophils # (auto) 0.1 10 ^3/uL (0-0.8); Eosinophils % (auto) 0.8 % (0.0-7.0); Hematocrit 35.5 % (36.0-46.0); Hemoglobin 12.6 g/dL (12.2-16.2); Lymphocytes # (auto) 1.7 10 ^3/uL (0.4-5.4); Lymphocytes % (auto) 25.7 % (10.0-50.0); Mean Corpuscular Hemoglobin 31.6 pg (28.0-32.0); Mean Corpuscular Hgb Conc. 35.4 g/dL (32.0-36.0); Mean Corpuscular Volume 89.3 fL (80.0-100.0); Monocytes # (auto) 0.6 10 ^3/uL (0-1.3); Monocytes % (auto) 8.9 % (0.0-12.0); Neutrophils # (auto) 4.3 10 ^3/uL (1.6-8.6); Neutrophils % (auto) 64.3 % (37.0-80.0); Nucleated Red Blood Cells % 0.1 %; Platelet Count (auto) 238 10^3/uL (140-450); Red Blood Cells 3.98 10^6/uL (4.0-5.20); Red Cell Distribution Width 13.6 % (11.8-14.3); White Blood Cell 6.7 10^3/uL (4.4-10.8)
[2024-09-02 18:48] LABS: Urine Blood Negative /uL (Negative); Urine Clarity Clear (Clear); Urine Color Colorless (Yellow); Urine Protein, UAD Negative (Negative); Urine Specific Gravity 1.003 (1.001-1.035); Urine Squamous Epithelial Cell FEW /hpf (<5); Urine Urobilinogen Normal (Negative); Urine WBC < 1 /HPF (0-5); Urine pH 5.5 (5.0-9.0)
[2024-09-02 18:56] LABS: Alanine Aminotransferase 18 U/L (7-40); Albumin 4.3 g/dL (3.2-4.8); Alkaline Phosphatase 81 U/L (46-116); Anion Gap 10 (5-15); Aspartate Aminotransferase 19 U/L (13-40); BUN/Creatinine Ratio 15.8 (10.0-20.0); Blood Urea Nitrogen 12 mg/dL (9-23); Calcium 9.4 mg/dL (8.7-10.4); Carbon Dioxide 27 mmol/L (20-31); Chloride 103 mmol/L (98-107); Sodium 140 mmol/L (136-145); Total Protein 7.2 g/dL (5.7-8.2)
[2024-09-02 18:57] LABS: Bilirubin, Total 0.6 mg/dL (0.2-1.0)
[2024-09-02 19:01] LABS: Glucose 113 mg/dL (74-106); Potassium 3.3 mmol/L (3.5-5.1)
[2024-09-02 19:12] LABS: COVID19 ANTIGEN SOFIA FIA NEGATIVE (NEGATIVE); Rapid Influenza A Negative (Negative); Rapid Influenza B Negative (Negative)
[2024-09-02] MEDS ORDERED: ONDANSETRON HCL 4 MG/2 ML VIAL IV PRN (19:15)
[2024-09-02] MEDS ORDERED: ALBUTEROL SULF 2.5 MG/0.5ML(0.5%) NEB SOLN NEB PRN (19:15)
[2024-09-02] MEDS ORDERED: ACETAMINOPHEN 325 MG TAB PO PRN (19:15)
[2024-09-02 19:30] VITALS: O2SAT 99
--- NOTE | 2024-09-02 20:51 | DVH ---
CT HEAD WITHOUT CONTRAST INDICATION: Upper and lower extremity intermittent numbness EXAM DATE: 09/02/2024 08:08 PM COMPARISON: None RADIATION DOSE: CTDIvol: 50.55 mGy, DLP: 911.35 mGy*cm PROCEDURE: CT scans of the head were obtained from the vertex to the skull base. Sagittal and coronal reconstructions were provided. All CT scans at this medical facility are performed using dose modulation techniques as appropriate t o a performed exam including the following: Automated exposure control was utilized; adjustment of th e MA and/or KV according to patient size; and use of iterative reconstruction technique. FINDINGS: . There are atrophic changes which appear to be more prominent in the temporal lobes. There is no evidence for stroke. 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 There are no midline shifts or focal mass effect or evidence for intracranial hemorrhage. Paranasal sinuses and mastoid air cells are very well aerated and unremarkable. Internal auditory can als and external auditory canals and middle ears are unremarkable. Calvarium is intact. Midline struc tures are unremarkable including the pituitary the hippocampal structures are symmetric. IMPRESSION: 1. Mild cortical atrophy which appears to be most prominent in the temporal lobes bilaterally. No ac luis m findings. Patient May benefit from MRI exam
[2024-09-02 21:05] VITALS: BP 131/81; PULSE 72; RESP 16; TEMP 98; O2SAT 99
--- NOTE | 2024-09-02 21:10 | DVHHP2 ---
History of Present Illness Reason for Visit: Shortness for breath History of Present Illness 73-year-old female presents for evaluation of shortness for breath. Patient reports a three day history of shortness for breath with associated substernal chest pressure and intermittent upper and lower extremity numbness. Currently d enies any symptoms. No unilateral weakness or slurred speech. No headache or blurred vision. No other acute complaints reported. Past Medical History Hypothyroid and anxiety Past Surgical History Hysterectomy and cholecystectomy Family History Noncontributory Smoke: No ALCOHOL: none Drugs: None Lives: with Family Review of Systems Review of Systems Review of systems are currently negative otherwise addressed in HPI. Allergies: Coded Allergies: No Known Drug Allergy (Verified Allergy, Unknown, 09/13/16) Medications Current Medications Medications Dose Ordered Sig/Lazaro Route Start Time Stop Time Status Last Admin Dose Admin Ceftriaxone Sodium 50 ml @ 100 mls/hr DAILY@09 IV 09/03/24 09:00 Azithromycin 250 ml @ 125 mls/hr DAILY IV 09/03/24 10:00 Albuterol 2.5 mg Q6HPRN PRN NEB 09/02/24 19:15 Levothyroxine Sodium 25 mcg QAM@0600 PO 09/03/24 06:00 Ondansetron HCl 4 mg Q4HP PRN IV 09/02/24 19:15 Enoxaparin Sodium 40 mg DAILY SC 09/03/24 10:00 Acetaminophen 650 mg Q6HP PRN PO 09/02/24 19:15 Exam Vital Signs Vital Signs Date Time Temp Pulse Resp B/P (MAP) Pulse Ox O2 Delivery O2 Flow Rate FiO2 09/02/24 19:30 99 Room Air 0.0 09/02/24 19:30 21 09/02/24 17:29 98.0 93 17 131/81 (98) Exam Gen: 73-year-old female in no apparent distress Skin: Warm, dry, normal color and texture, no rash. HEENT: Normocephalic atraumatic, mucous membranes moist and pink. Neck: Cervical and supraclavicular nodes normal without enlargement, trachea is midline, thyroid gland is normal without masses. Pulmonary: Clear to auscultation and percussion bilaterally. Cardiac: Regular rate and rhythm. No murmur Abdomen: Soft, nontender, nondistended, bowel sounds present all 4 quadrants, no guarding, no rigidity, no organomegaly. Extremities: No cyanosis, clubbing, no edema Neuro: Cranial nerves II through XII grossly intact, normal affect and speech, no focal motor deficits. Labs/Xrays ORDERING PHYSICIAN: NESSA FERNANDEZ DO PROCEDURE(s): CXRP - CHEST PORTABLE REASON: cp ORDER NUMBER(s): [id number], ACCESSION NUMBER(s): [id number] EXAM: XR Chest, 1 View CLINICAL INDICATION: cp TECHNIQUE: Frontal view of the chest. COMPARISON: CHEST XRAY 1 VIEW on DOS: 08/09/21 FINDINGS: LUNGS AND PLEURAL SPACES: Right basilar atelectasis or pneumonia. No pneumothorax. HEART: Unremarkable. No cardiomegaly. MEDIASTINUM: Unremarkable. Normal mediastinal contour. BONES/JOINTS: Unremarkable. No acute fracture. OTHER FINDINGS: . IMPRESSION: Right basilar atelectasis or pneumonia. RING PHYSICIAN: ARELIS SMITHCNMeet PROCEDURE(s): HWOCT - HEAD WITHOUT CONTRAST REASON: Upper and lower extremity intermittent numbness ORDER NUMBER(s): [id number], ACCESSION NUMBER(s): [id number] CT HEAD WITHOUT CONTRAST INDICATION: Upper and lower extremity intermittent numbness EXAM DATE: 09/02/2024 08:08 PM COMPARISON: None RADIATION DOSE: CTDIvol: 50.55 mGy, DLP: 911.35 mGy*cm PROCEDURE: CT scans of the head were obtained from the vertex to the skull base. Sagittal and coronal reconstructions were provided. All CT scans at this medical facility are performed using dose modulation techniques as appropriate to a performed exam including the following: Automated exposure control was utilized; adjustment of the MA and/or KV according to patient size; and use of iterative reconstruction technique. FINDINGS: . There are atrophic changes which appear to be more prominent in the temporal lobes. There is no evidence for stroke. 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 There are no midline shifts or focal mass effect or evidence for intracranial hemorrhage. Paranasal sinuses and mastoid air cells are very well aerated and unremarkable. Internal auditory canals and external auditory canals and middle ears are unremarkable. Calvarium is intact. Midline structures are unremarkable including the pituitary the hippocampal structures are symmetric. IMPRESSION: 1. Mild cortical atrophy which appears to be most prominent in the temporal lobes bilaterally. No acute findings. Patient May benefit from MRI exam Labs Test 09/02/24 18:53 09/02/24 17:47 09/02/24 17:45 09/02/24 17:39 Range/Units Troponin I High Sensitivity 11 </=34 ng/L Urine Color Colorless Yellow Urine Clarity Clear Clear Urine pH 5.5 5.0-9.0 Urine Specific [place] 1.003 1.001-1.035 Urine Protein Negative Negative Urine Ketones Negative Negative Urine Blood Negative Negative /uL Urine Nitrite Negative Negative Urine Bilirubin Negative Negative Urine Urobilinogen Normal Negative mg/dL Urine Leukocyte Esterase Negative Negative /uL Urine RBC <1 0 - 4 /hpf Urine Microscopic WBC < 1 0-5 /HPF Urine Squamous Epithelial Cells Few <5 /hpf Urine Bacteria None seen None Seen /hpf Urine Glucose Normal Normal mg/dL Influenza Type A Antigen Negative Negative Influenza Type B Antigen Negative Negative SARS-CoV-2 Antigen (Rapid) Negative NEGATIVE White Blood Count 6.7 4.4-10.8 10^3/uL Red Blood Count 3.98 L 4.0-5.20 10^6/uL Hemoglobin 12.6 12.2-16.2 g/dL Hematocrit 35.5 L 36.0-46.0 % Mean Corpuscular Volume 89.3 80.0-100.0 fL Mean Corpuscular Hemoglobin 31.6 28.0-32.0 pg Mean Corpuscular Hemoglobin Concent 35.4 32.0-36.0 g/dL Red Cell Distribution Width 13.6 11.8-14.3 % Platelet Count 238 140-450 10^3/uL Mean Platelet Volume 8.6 6.9-10.8 fL Neutrophils (%) (Auto) 64.3 37.0-80.0 % Lymphocytes (%) (Auto) 25.7 10.0-50.0 % Monocytes (%) (Auto) 8.9 0.0-12.0 % Eosinophils (%) (Auto) 0.8 0.0-7.0 % Basophils (%) (Auto) 0.3 0.0-2.0 % Neutrophils # (Auto) 4.3 1.6-8.6 10 ^3/uL Lymphocytes # (Auto) 1.7 0.4-5.4 10 ^3/uL Monocytes # (Auto) 0.6 0-1.3 10 ^3/uL Eosinophils # (Auto) 0.1 0-0.8 10 ^3/uL Basophils # (Auto) 0 0-0.2 10 ^3/uL Nucleated Red Blood Cells 0.1 % Sodium Level 140 136-145 mmol/L Potassium Level 3.3 L 3.5-5.1 mmol/L Chloride Level 103 98-107 mmol/L Carbon Dioxide Level 27 20-31 mmol/L Anion Gap 10 5-15 Blood Urea Nitrogen 12 9-23 mg/dL Creatinine 0.76 0.550-1.02 mg/dL Glomerular Filtration Rate Calc 84 >90 mL/min BUN/Creatinine Ratio 15.8 10.0-20.0 Serum Glucose 113 H 74-106 mg/dL Calcium Level 9.4 8.7-10.4 mg/dL Magnesium Level 2.2 1.6-2.6 mg/dL Total Bilirubin 0.6 0.2-1.0 mg/dL Aspartate Amino Transferase (AST) 19 13-40 U/L Alanine Aminotransferase (ALT) 18 7-40 U/L Alkaline Phosphatase 81 46-116 U/L B-Type Natriuretic Peptide 15.48 0-100 pg/mL Total Protein 7.2 5.7-8.2 g/dL Albumin 4.3 3.2-4.8 g/dL Assessment/Plan Assessment/Plan Assessment Possible community-acquired pneumonia Peripheral neuropathy Hypothyroid Plan Admit the [facility] to [facility] to the hospitalist Resume home medications Rocephin/azithromycin Continue treatment per orders. Plan discussed with: Patient My Orders Orders - ARELIS SMITH AGACN Procedure Category Date Status Time Admit ADMIT 09/02/24 Transmitted 19:00 Ceftriaxone 1gm/50ml PHA 09/03/24 In Process D5w (Rocephin) 09:00 Azithromycin 500mg/ PHA 09/03/24 In Process 250ml (Zithromax 50 10:00 Azithromycin 500mg/ PHA 09/02/24 In Process 250ml (Zithromax 50 19:15 Albuterol Medneb PHA 09/02/24 In Process (Ventolin Medneb) 19:15 Levothyroxine Tablet PHA 09/03/24 In Process (Synthroid Tablet) 06:00 Basic Metabolic Panel LAB 09/03/24 Verified 04:00 Ondansetron Hcl PHA 09/02/24 In Process (Zofran) 19:15 Enoxaparin Sodium PHA 09/03/24 In Process (Lovenox) 10:00 Complete Blood Count LAB 09/03/24 Verified 04:00 Cardiac DIET 09/03/24 Transmitted Diet-2gna,Lofat,Lochol Breakfast Condition: Stable SENTHIL 09/02/24 In Process 19:01 Acetaminophen Tablet PHA 09/02/24 In Process (Tylenol Tablet) 19:15 Bedrest With Bathroom SENTHIL 09/02/24 In Process Privileg 19:[address] 09/02/24 Resulted 20:02 Potassium Er Tablet PHA 09/02/24 In Process (Klor-Con Tablet) 20:15 Date of Service: Sep 02, 2024 Billing Provider: ARELIS SMITH Common Visit Codes: [id number] INP/OBS CARE (MOD) ARELIS SMITH Sep 02, 2024 21:10
[2024-09-02 21:49] VITALS: PULSE 65; RESP 16; O2SAT 92
[2024-09-02] MEDS: cefTRIAXone 1GM/50ML D5W 50 ML IV ONE (22:46)
[2024-09-02] MEDS: NITROGLYCERIN 0.4 MG SL TAB SL ONE (22:49)
[2024-09-02] MEDS: GABAPENTIN 100 MG CAP PO ONE (22:49)
[2024-09-02] MEDS: POTASSIUM CHL 20 Meq TABLET PO ONE (22:49)
[2024-09-02 23:56] VITALS: BP 109/55; PULSE 72; PULSE 86; RESP 16; RESP 18; TEMP 98.2; O2SAT 95; O2SAT 98
[2024-09-03] VITALS (9 sets, daily range): BP systolic 92–107; BP diastolic 49–62; PULSE 65–81; RESP 16–18; TEMP 97.6–98.8; O2SAT 94–100
[2024-09-03] MEDS ORDERED: LEVO25TA6 (00:37)
[2024-09-03] MEDS: AZITHROMYCIN 500MG/ 250ML 250 ML IV ONE (01:04)
[2024-09-03] MEDS: LEVOTHYROXINE SODIUM 25 MCG TAB PO SCH (05:26)
[2024-09-03 06:01] LABS: Basophils # (auto) 0 10 ^3/uL (0-0.2); Basophils % (auto) 0.4 % (0.0-2.0); Eosinophils # (auto) 0.1 10 ^3/uL (0-0.8); Eosinophils % (auto) 1.8 % (0.0-7.0); Hematocrit 35.2 % (36.0-46.0); Lymphocytes # (auto) 1.3 10 ^3/uL (0.4-5.4); Mean Corpuscular Hemoglobin 30.7 pg (28.0-32.0); Mean Corpuscular Volume 90.4 fL (80.0-100.0); Monocytes # (auto) 0.6 10 ^3/uL (0-1.3); Monocytes % (auto) 11.2 % (0.0-12.0); Neutrophils # (auto) 3.4 10 ^3/uL (1.6-8.6); Neutrophils % (auto) 62.6 % (37.0-80.0); Nucleated Red Blood Cells % 0.1 %; Platelet Count (auto) 219 10^3/uL (140-450); Red Cell Distribution Width 13.5 % (11.8-14.3); White Blood Cell 5.4 10^3/uL (4.4-10.8)
[2024-09-03 06:06] LABS: Anion Gap 8 (5-15); Carbon Dioxide 27 mmol/L (20-31); Chloride 105 mmol/L (98-107); Potassium 3.7 mmol/L (3.5-5.1); Sodium 140 mmol/L (136-145)
[2024-09-03 06:07] LABS: Calcium 9.1 mg/dL (8.7-10.4)
[2024-09-03 06:12] LABS: BUN/Creatinine Ratio 11.4 (10.0-20.0); Glucose 84 mg/dL (74-106)
[2024-09-03 06:15] LABS: Blood Urea Nitrogen 8 mg/dL (9-23)
--- NOTE | 2024-09-03 07:16 | ECG ---
[facility] Test Date: 2024-09-02 Test Time: 17:24:52 Pat Name: ANDREW NGUYEN Department: ER Room: 0231 Gender: F Cytology Teacher: CHRISTIN : 1950 Requested By: NESSA FERNANDEZ Order Number: [id number] Reading MD: Yosi Pa Measurements Intervals [place] Rate: 91 P: 0 IA: 0 QRS: 0 QRSD: 75 T: 2 QT: 430 QTc: 530 Interpretive Statements Atrial fibrillation S1,S2,S3 pattern Low voltage, precordial leads Borderline abnrm T, anterolateral leads Prolonged QT interval Electronically Signed On 09-07-2024 18:24:35 PDT by Yosi Pa Please click the below link to view image of tracing.
[2024-09-03] MEDS: cefTRIAXone 1GM/50ML D5W 50 ML IV SCH (08:01)
[2024-09-03] MEDS: ENOXAPARIN SOD 40 MG/0.4 ML SYRINGE SC SCH (09:16)
[2024-09-03] MEDS: AZITHROMYCIN 500MG/ 250ML 250 ML IV SCH (09:17)
--- NOTE | 2024-09-03 15:15 | DVHPN2 ---
Subjective PATIENT REPORTING HAVING INTERMITTENT SUBSTERNAL CHEST DISCOMFORT, WELL PARESTHESIA TO BOTH HANDS Reviewed: Care Plan, H&P, Labs, Medications, Previous Orders Changes from previous H/P or p: No Changes General: Per HPI Objective Vitals Vital Signs Date Time Temp Pulse Resp B/P (MAP) Pulse Ox O2 Delivery O2 Flow Rate FiO2 09/03/24 07:59 98.1 68 18 92/49 (63) 100 98.1 09/03/24 06:47 Room Air* 0 21 Intake/Output Intake and Output 09/03/24 07:00 Intake Total 50 ml Balance 50 ml Intake Oral 0 ml IV Total 50 ml # Voids 1 General Appearance: Alert, Oriented X3, Cooperative, No acute distress HEENT: Atraumatic, PERRLA Neck: Carotid [place] Lungs: Clear to auscultation, Normal air movement Cardiovascular: Normal S1, Normal S2 Abdomen: Normal bowel sounds, Soft Musculoskeletal: Normal sensory function, Normal motor function Extremities: No clubbing, No cyanosis Neuro: Normal gait, Normal speech Psych/Mental Status: Mental status NL, Mood NL Medications Current Medications Medications Dose Ordered Sig/Lazaro Route Start Time Stop Time Status Last Admin Dose Admin Ceftriaxone Sodium 50 ml @ 100 mls/hr DAILY@09 IV 09/03/24 09:00 09/03/24 08:01 100 MLS/HR Azithromycin 250 ml @ 125 mls/hr DAILY IV 09/03/24 10:00 09/03/24 09:17 125 MLS/HR Albuterol 2.5 mg Q6HPRN PRN NEB 09/02/24 19:15 Levothyroxine Sodium 25 mcg QAM@0600 PO 09/03/24 06:00 Ondansetron HCl 4 mg Q4HP PRN IV 09/02/24 19:15 Enoxaparin Sodium 40 mg DAILY SC 09/03/24 10:00 09/03/24 09:16 40 MG Acetaminophen 650 mg Q6HP PRN PO 09/02/24 19:15 Laboratory Results Laboratory Tests 09/03/24 05:20 Chemistry Test 09/02/24 17:39 09/03/24 05:20 Albumin 4.3 g/dL (3.2-4.8) Calcium Level 9.4 mg/dL (8.7-10.4) 9.1 mg/dL (8.7-10.4) Magnesium Level 2.2 mg/dL (1.6-2.6) Total Protein 7.2 g/dL (5.7-8.2) Cardiac Markers Test 09/02/24 17:39 B-Type Natriuretic Peptide 15.48 pg/mL (0-100) LFT Test 09/02/24 17:39 Alanine Aminotransferase (ALT) 18 U/L (7-40) Alkaline Phosphatase 81 U/L (46-116) Aspartate Amino Transferase (AST) 19 U/L (13-40) Total Bilirubin 0.6 mg/dL (0.2-1.0) HgA1c, TSH Test 09/02/24 18:53 Thyroid Stimulating Hormone (TSH) 8.72 uIU/mL (0.55-4.78) H Urinalysis Test 09/02/24 17:47 Urine Color Colorless (Yellow) Urine Clarity Clear (Clear) Urine pH 5.5 (5.0-9.0) Urine Specific [place] 1.003 (1.001-1.035) Urine Protein Negative (Negative) Urine Ketones Negative (Negative) Urine Blood Negative /uL (Negative) Urine Nitrite Negative (Negative) Urine Bilirubin Negative (Negative) Urine Urobilinogen Normal mg/dL (Negative) Urine Leukocyte Esterase Negative /uL (Negative) Urine RBC <1 /hpf (0 - 4) Urine Microscopic WBC < 1 /HPF (0-5) Urine Squamous Epithelial Cells Few /hpf (<5) Urine Bacteria None seen /hpf (None Seen) Urine Glucose Normal mg/dL (Normal) Labs and/or images reviewed: Labs reviewed by me, Image(s) reviewed by me Assessment/Plan Assessment/Plan Patient: -ACS -community-acquired pneumonia, right lower lobe -hypothyroidism Plan: -cardiology consultation -ACS protocol -repeat 12 lead ECG -echocardiogram -start thyroid supplementation -continue IV antibiotic therapy: Rocephin, azithromycin -long discussion made with the patient's family was bedside. Patient was had intermittent substernal chest discomfort, an overall decrease in her activity level, intermittent paresthesia to both arms, as well as reporting having diaphoresis, shortness of breath, substernal chest discomfort as well as paresthesia to both hands at urgent care prior to coming into the emergency room. With these findings, it was discussed that her? Pneumonia it was found on x-ray does not coincide with her symptoms. Patient will be treated for ACS at this time. All questions answered. Total time spent with patient discussing and formulating plan of care: 35 minutes. Total time spent with patient and family regarding advance care plannin minutes. This medical document was created using an electronic medical record system with [employer] dictation system. Although this document has been carefully reviewed, there may still be some phonetic and typographical errors. These areas are purely typographical due to imperfections of the software programs, and do not reflect any compromise in the patient's medical care. Plan discussed with: Patient, Daughter, Son, Other (RN) My Orders Orders - SHAHZAD MARCIAL NP Procedure Category Date Status Time Aspirin Tablet PHA 09/03/24 Logged 15:15 Electrocardigram EKG 09/03/24 Logged 15:06 Echo 2d Mode Cardiac US 09/03/24 Logged DOP 15:06 * Cardiology Consult CONS 09/03/24 Transmitted 15:06 Creatine Kinase LAB 09/03/24 Logged 15:06 Date of Service: Sep 03, 2024 Billing Provider: SHAHZAD MARCIAL NP Common Visit Codes: [id number] INP/OBS CARE(HIGH) Secondary Visit Codes: [id number] CARE PLAN 30 MINUTES SHAHZAD MARCIAL NP Sep 03, 2024 15:15
--- NOTE | 2024-09-03 17:37 | DVHINCON2 ---
WINSOME COATS [facility] 09/03/24 1737: Date Seen: Sep 03, 2024 Referring Physician CM Garcia Reason for Consultation ACS History of Present Illness This is a pleasant 73-year-old female who presented to the emergency room with a chief complaint of chest pain yesterday. Describes her chest pain as substernal, nonradiating, intermittent, pressure-like, and associated with dizziness, bilateral hand numbness and left lower extremity numbness. She underwent a 12 lead electrocardiogram revealing a sinus rhythm and T-wave inversion to single lead three (ECG misread by machine as A-fib). Serial troponin levels are negative. States she underwent a recent upper endoscopy and colonoscopy two days prior to arrival. 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 Of note, the patient acknowledges she is not compliant with her medical therapy at home as she believes on diet and exercise for thyroid and dyslipidemia management. Past Medical History Past medical history reviewed. No other significant than mentioned above. Past Surgical History Hysterectomy Vaginal tumor resection, 2023 Bladder prolapse repair Family History: Hypertension G8 MOTHER Family History Family history reviewed. Mother with CVAs x7 Social History Denies the use of illicit drugs, alcohol, or tobacco use. Allergies: Coded Allergies: No Known Drug Allergy (Verified Allergy, Unknown, 09/13/16) Home Meds Reported Medications Levothyroxine Sodium (Levothyroxine Sodium) 25 Mcg Tab, 1 DAILY 09/03/24 Home Meds Home medications reviewed. Denies taking them. Current Medications Current Medications Medications (Trade) Dose Ordered Sig/Lazaro Route PRN Reason Start Time Stop Time Status Last Admin Ceftriaxone Sodium 50 ml @ 100 mls/hr DAILY@09 IV 09/03/24 09:00 09/03/24 08:01 Azithromycin 250 ml @ 125 mls/hr DAILY IV 09/03/24 10:00 09/03/24 09:17 Albuterol (Ventolin Medneb) 2.5 mg Q6HPRN PRN NEB SHORTNESS OF BREATH 09/02/24 19:15 Levothyroxine Sodium (Synthroid Tablet) 25 mcg QAM@0600 PO 09/03/24 06:00 Ondansetron HCl (Zofran) 4 mg Q4HP PRN IV NAUSEA / VOMITING 09/02/24 19:15 Enoxaparin Sodium (Lovenox) 40 mg DAILY SC 09/03/24 10:00 09/03/24 09:16 Acetaminophen (Tylenol Tablet) 650 mg Q6HP PRN PO PAIN SCALE 1-3 OR TEMP>100.4 09/02/24 19:15 Review of Systems Constitutional: No symptom reported Ears, Nose, & Throat: No symptom reported Eyes: No symptom reported Neurological: Dizziness Pulmonary/Respiratory: No symptom reported Cardiovascular: Chest pain Gastrointestinal: No symptom reported Genitourinary: No symptom reported Musculoskeletal: Bilateral hand/left lower extremity numbness Skin: No symptom reported Psychiatric: No symptom reported Endocrine: No symptom reported Hemotologic/Lymphatic: No symptom reported Vital Signs Vital Signs Date Time Temp Pulse Resp B/P (MAP) Pulse Ox O2 Delivery O2 Flow Rate FiO2 09/03/24 07:59 98.1 68 18 92/49 (63) 100 98.1 09/03/24 06:47 Room Air* 0 21 Physical Exam General Appearance: Cooperative. Well developed. Well nourished. In no acute distress Head Exam: Normal inspection Neck Exam: Normal inspection. Non-tender. Normal alignment Pulmonary/Respiratory: Chest non-tender. Clear bilateral breath sounds Cardiovascular/Chest: Regular rate and rhythm. S1, S2. Sinus rhythm with T- wave inversion to lead three. No murmurs. No JVD. Peripheral Pulses: 2+ Radial (R). 2+ Radial (L). 2+ Pedal (R). 2+ Pedal (L) Abdominal Exam: Normal bowel sounds. Soft. Nontender. No hepatospenomegaly. No masses Ankle Exam: Negative ankle edema Lower extremities: Negative lower extremity edema Neuro/Mental Status: A&O x4. Coherent Thoughts/Psych: Normal thought pattern. Appropriate mood and affect. Good judgement and insight Appearance: In no acute distress Skin Exam: Normal inspection. Normal color. Warm. Dry Labs/Diagnostic Data Labs Test 09/03/24 05:20 09/02/24 21:09 09/02/24 18:53 09/02/24 17:47 Range/Units White Blood Count 5.4 4.4-10.8 10^3/uL Red Blood Count 3.90 L 4.0-5.20 10^6/uL Hemoglobin 12.0 L 12.2-16.2 g/dL Hematocrit 35.2 L 36.0-46.0 % Mean Corpuscular Volume 90.4 80.0-100.0 fL Mean Corpuscular Hemoglobin 30.7 28.0-32.0 pg Mean Corpuscular Hemoglobin Concent 34.0 32.0-36.0 g/dL Red Cell Distribution Width 13.5 11.8-14.3 % Platelet Count 219 140-450 10^3/uL Mean Platelet Volume 8.0 6.9-10.8 fL Neutrophils (%) (Auto) 62.6 37.0-80.0 % Lymphocytes (%) (Auto) 24.0 10.0-50.0 % Monocytes (%) (Auto) 11.2 0.0-12.0 % Eosinophils (%) (Auto) 1.8 0.0-7.0 % Basophils (%) (Auto) 0.4 0.0-2.0 % Neutrophils # (Auto) 3.4 1.6-8.6 10 ^3/uL Lymphocytes # (Auto) 1.3 0.4-5.4 10 ^3/uL Monocytes # (Auto) 0.6 0-1.3 10 ^3/uL Eosinophils # (Auto) 0.1 0-0.8 10 ^3/uL Basophils # (Auto) 0 0-0.2 10 ^3/uL Nucleated Red Blood Cells 0.1 % Sodium Level 140 136-145 mmol/L Potassium Level 3.7 3.5-5.1 mmol/L Chloride Level 105 98-107 mmol/L Carbon Dioxide Level 27 20-31 mmol/L Anion Gap 8 5-15 Blood Urea Nitrogen 8 L 9-23 mg/dL Creatinine 0.70 0.550-1.02 mg/dL Glomerular Filtration Rate Calc 92 >90 mL/min BUN/Creatinine Ratio 11.4 10.0-20.0 Serum Glucose 84 74-106 mg/dL Calcium Level 9.1 8.7-10.4 mg/dL Creatine Kinase 118 34-145 U/L Troponin I High Sensitivity 10 </=34 ng/L Thyroid Stimulating Hormone (TSH) 8.72 H 0.55-4.78 uIU/mL Urine Color Colorless Yellow Urine Clarity Clear Clear Urine pH 5.5 5.0-9.0 Urine Specific [place] 1.003 1.001-1.035 Urine Protein Negative Negative Urine Ketones Negative Negative Urine Blood Negative Negative /uL Urine Nitrite Negative Negative Urine Bilirubin Negative Negative Urine Urobilinogen Normal Negative mg/dL Urine Leukocyte Esterase Negative Negative /uL Urine RBC <1 0 - 4 /hpf Urine Microscopic WBC < 1 0-5 /HPF Urine Squamous Epithelial Cells Few <5 /hpf Urine Bacteria None seen None Seen /hpf Urine Glucose Normal Normal mg/dL Test 09/02/24 17:45 09/02/24 17:39 Range/Units Influenza Type A Antigen Negative Negative Influenza Type B Antigen Negative Negative SARS-CoV-2 Antigen (Rapid) Negative NEGATIVE Magnesium Level 2.2 1.6-2.6 mg/dL Total Bilirubin 0.6 0.2-1.0 mg/dL Aspartate Amino Transferase (AST) 19 13-40 U/L Alanine Aminotransferase (ALT) 18 7-40 U/L Alkaline Phosphatase 81 46-116 U/L B-Type Natriuretic Peptide 15.48 0-100 pg/mL Total Protein 7.2 5.7-8.2 g/dL Albumin 4.3 3.2-4.8 g/dL Assessment Chest pain rule out structural heart disease Hypothyroidism, uncontrolled Hypokalemia Dyslipidemia Plan/Recommendation (Dr. Bah) Case discussed in full detail and patient examined by Dr. Bah. The patient presents with chest pain in the setting of pneumonia and hypokalemia. Heart Score is 3 placing her at a low-risk for major cardiac events. We will continue further cardiac evaluation with a transthoracic echocardiogram to rule out structural heart disease. In the meantime, replete electrolytes as necessary. Advised for patient to be compliant with thyroid disease medication as its uncontrolled and could be the culprit of symptoms. In the setting of an unremarkable echocardiogram, there is no further cardiac workup indicated at this time. Thank you for allowing us to participate in this patient's care. This medical document was created using an electronic medical record system with voice recognition software and computerized dictation system. Although this document has been carefully reviewed, there might still be some phonetic and typographical errors. Occasional wrong-word or ``sound-alike substitutions may have occurred due to the inherent limitations of voice recognition software. These areas are purely typographical due to imperfections of the software programs and do not reflect any compromise in the patient's medical care. Please read the chart carefully and recognize, using context, where these substitutions have occurred. Plan discussed with: Patient, Other NYHA Physical activity limitations: NA Date of Service: Sep 03, 2024 Billing Provider: WINSOME COATS Cardiology Common Codes: [id number] INP/OBS CARE (High) MARILYNN BAH MD 09/05/24 1658: Date Seen: Sep 03, 2024 Family History: Hypertension G8 MOTHER Allergies: Coded Allergies: No Known Drug Allergy (Verified Allergy, Unknown, 09/13/16) Home Meds Reported Medications Levothyroxine Sodium (Levothyroxine Sodium) 25 Mcg Tab, 1 DAILY 09/03/24 Plan/Recommendation 73 year-old female presenting with nonspecific chest pain. Obtain 2D echocardiogram. Given patient's risk factors sex, age, hyperlipidemia, + symptoms, reasonable to obtain stress test during hospitalization if troponins remain negative. We'll discuss with family and patient. Cardiology Common Codes: [id number] INP/OBS CARE (Mod) WINSOME COATS Sep 03, 2024 17:37 MARILYNN BAH MD Sep 05, 2024 16:58
[2024-09-03] MEDS: ASPirin 81 mg TAB PO ONE (17:50)
[2024-09-04] VITALS (9 sets, daily range): BP systolic 9–134; BP diastolic 48–76; PULSE 65–82; RESP 14–18; TEMP 97.7–98.7; O2SAT 93–98
--- NOTE | 2024-09-04 15:27 | DVHPN2 ---
Subjective PATIENT REPORTING HAVING INTERMITTENT SUBSTERNAL CHEST DISCOMFORT, WELL PARESTHESIA TO BOTH HANDS Reviewed: Care Plan, H&P, Labs, Medications, Previous Orders Changes from previous H/P or p: No Changes General: Per HPI Objective Vitals Vital Signs Date Time Temp Pulse Resp B/P (MAP) Pulse Ox O2 Delivery O2 Flow Rate FiO2 09/04/24 12:48 98.1 65 15 106/60 (75) 95 98.1 09/04/24 10:00 Room Air 0.0 09/04/24 10:00 21 Intake/Output Intake and Output 09/04/24 06:59 Intake Total 350 ml Balance 350 ml Intake Oral 350 ml General Appearance: Alert, Oriented X3, Cooperative, No acute distress HEENT: Atraumatic, PERRLA Neck: Carotid [place] Lungs: Clear to auscultation, Normal air movement Cardiovascular: Normal S1, Normal S2 Abdomen: Normal bowel sounds, Soft Musculoskeletal: Normal sensory function, Normal motor function Extremities: No clubbing, No cyanosis Neuro: Normal gait, Normal speech Skin: Dry, Intact Psych/Mental Status: Mental status NL, Mood NL Medications Current Medications Medications Dose Ordered Sig/Lazaro Route Start Time Stop Time Status Last Admin Dose Admin Ceftriaxone Sodium 50 ml @ 100 mls/hr DAILY@09 IV 09/03/24 09:00 09/04/24 09:22 100 MLS/HR Azithromycin 250 ml @ 125 mls/hr DAILY IV 09/03/24 10:00 Hold 09/03/24 09:17 125 MLS/HR Albuterol 2.5 mg Q6HPRN PRN NEB 09/02/24 19:15 Cancel Levothyroxine Sodium 25 mcg QAM@0600 PO 09/03/24 06:00 09/04/24 05:18 25 MCG Ondansetron HCl 4 mg Q4HP PRN IV 09/02/24 19:15 Enoxaparin Sodium 40 mg DAILY SC 09/03/24 10:00 09/04/24 09:22 40 MG Acetaminophen 650 mg Q6HP PRN PO 09/02/24 19:15 Laboratory Results Laboratory Tests 09/03/24 05:20 Urinalysis Test 09/02/24 17:47 Urine Color Colorless (Yellow) Urine Clarity Clear (Clear) Urine pH 5.5 (5.0-9.0) Urine Specific [place] 1.003 (1.001-1.035) Urine Protein Negative (Negative) Urine Ketones Negative (Negative) Urine Blood Negative /uL (Negative) Urine Nitrite Negative (Negative) Urine Bilirubin Negative (Negative) Urine Urobilinogen Normal mg/dL (Negative) Urine Leukocyte Esterase Negative /uL (Negative) Urine RBC <1 /hpf (0 - 4) Urine Microscopic WBC < 1 /HPF (0-5) Urine Squamous Epithelial Cells Few /hpf (<5) Urine Bacteria None seen /hpf (None Seen) Urine Glucose Normal mg/dL (Normal) Labs and/or images reviewed: Labs reviewed by me, Image(s) reviewed by me Assessment/Plan Assessment/Plan Patient: -ACS -community-acquired pneumonia, right lower lobe -hypothyroidism Plan: Events: No symptoms overnight. -cardiology consultation: Discuss case. Stress test tomorrow. -ACS protocol -echocardiogram -Increase levothyroxine 50mcg -continue IV antibiotic therapy: Rocephin, azithromycin -Stress test tomorrow Total time spent with patient discussing and formulating plan of care: 35 minutes. This medical document was created using an electronic medical record system with [employer] dictation system. Although this document has been carefully reviewed, there may still be some phonetic and typographical errors. These areas are purely typographical due to imperfections of the software programs, and do not reflect any compromise in the patient's medical care. Plan discussed with: Patient, Other (RN) Date of Service: Sep 04, 2024 Billing Provider: SHAHZAD MARCIAL NP Common Visit Codes: [id number] INP/OBS CARE(HIGH) SHAHZAD MARCIAL NP Sep 04, 2024 15:27
--- NOTE | 2024-09-04 16:18 | DVHPN2 ---
Consult Progress Note Objective vital signs Vital Sign Date Time Temp Pulse Resp B/P (MAP) Pulse Ox O2 Delivery O2 Flow Rate FiO2 09/04/24 12:48 98.1 65 15 106/60 (75) 95 98.1 09/04/24 10:00 Room Air 0.0 09/04/24 10:00 21 Total Intake and Output 09/03/24 09/03/24 09/04/24 15:00 23:00 07:00 Intake Total 350 ml 0 ml Balance 350 ml 0 ml medications Current Medications Medications Dose Ordered Sig/Lazaro Route Start Time Stop Time Status Last Admin Dose Admin Ceftriaxone Sodium 50 ml @ 100 mls/hr DAILY@09 IV 09/03/24 09:00 09/04/24 09:22 100 MLS/HR Azithromycin 250 ml @ 125 mls/hr DAILY IV 09/03/24 10:00 Hold 09/03/24 09:17 125 MLS/HR Albuterol 2.5 mg Q6HPRN PRN NEB 09/02/24 19:15 Cancel Ondansetron HCl 4 mg Q4HP PRN IV 09/02/24 19:15 Enoxaparin Sodium 40 mg DAILY SC 09/03/24 10:00 09/04/24 09:22 40 MG Acetaminophen 650 mg Q6HP PRN PO 09/02/24 19:15 Levothyroxine Sodium 50 mcg QAM@0600 PO 09/05/24 06:00 UNV Melatonin 10 mg HS PO 09/04/24 22:00 UNV laboratory and microbiology Laboratory Tests 09/03/24 05:20 Test 09/03/24 05:20 Range/Units Serum Glucose 84 74-106 mg/dL Problem List/Assessment/Plan Problem List/Assessment/Plan Chest pain, rule out coronary ischemia Rule out structural heart disease Hypothyroidism, uncontrolled Hypokalemia Dyslipidemia Plan/Recommendation (Dr. Pa) Case discussed in full detail with . We will obtain a transthoracic echocardiogram to evaluate cardiac function. Given the patient's clinical presentation, we will proceed with a nuclear stress test. We will upgrade the patient to telemetry monitoring. Thank you for allowing us to care for this patient. Please call with any questions or concerns. This medical document was created using an electronic medical record system with voice recognition software and computerized dictation system. Although this document has been carefully reviewed, there might still be some phonetic and typographical errors. Occasional wrong-word or ``sound-alike substitutions may have occurred due to the inherent limitations of voice recognition software. These areas are purely typographical due to imperfections of the software programs and do not reflect any compromise in the patient's medical care. Please read the chart carefully and recognize, using context, where these substitutions have occurred. Plan discussed with: Other (Bedside RN) Date of Service: Sep 04, 2024 Billing Provider: TANISHA RIVAS Common Visit Codes: [id number] INP/OBS CARE(HIGH) TANISHA RIVAS Sep 04, 2024 16:18
[2024-09-04] MEDS: MELATONIN 5 MG TAB PO SCH (22:02)
[2024-09-05] VITALS (8 sets, daily range): BP systolic 98–103; BP diastolic 43–65; PULSE 63–69; RESP 16–18; TEMP 36.7; O2SAT 95–98
[2024-09-05] MEDS: LEVOTHYROXINE SODIUM 25 MCG TAB PO SCH (06:13)
[2024-09-05] MEDS: REGADENOSON 0.4 MG/5 ML SYRG IV ONE ×2 (10:39→10:42)
[2024-09-05 10:42] LABS: Hepatitis B Surface Antigen Negative (Negative); Hepatitis C Antibody Negative (Negative)
--- NOTE | 2024-09-05 12:25 | DVHPN2 ---
Subjective Chest pain free. Reviewed: Care Plan, H&P, Labs, Medications, Previous Orders Changes from previous H/P or p: No Changes General: Per HPI Objective Vitals Vital Signs Date Time Temp Pulse Resp B/P (MAP) Pulse Ox O2 Delivery O2 Flow Rate FiO2 09/05/24 09:00 98.0 66 16 98/46 (63) 98 98.0 09/05/24 08:00 Room Air* 0 21 Intake/Output Intake and Output 09/05/24 07:00 Intake Total 1200 ml Balance 1200 ml Intake Oral 1150 ml IV Total 50 ml # Voids 5 General Appearance: Alert, Oriented X3, Cooperative, No acute distress HEENT: Atraumatic, PERRLA Neck: Carotid [place] Lungs: Clear to auscultation, Normal air movement Cardiovascular: Normal S1, Normal S2 Abdomen: Normal bowel sounds, Soft Musculoskeletal: Normal sensory function, Normal motor function Extremities: No clubbing, No cyanosis Neuro: Normal gait, Normal speech Skin: Dry, Intact Psych/Mental Status: Mental status NL, Mood NL Medications Current Medications Medications Dose Ordered Sig/Lazaro Route Start Time Stop Time Status Last Admin Dose Admin Ceftriaxone Sodium 50 ml @ 100 mls/hr DAILY@09 IV 09/03/24 09:00 09/05/24 08:56 100 MLS/HR Albuterol 2.5 mg Q6HPRN PRN NEB 09/02/24 19:15 Cancel Ondansetron HCl 4 mg Q4HP PRN IV 09/02/24 19:15 Enoxaparin Sodium 40 mg DAILY SC 09/03/24 10:00 09/05/24 08:56 40 MG Acetaminophen 650 mg Q6HP PRN PO 09/02/24 19:15 Levothyroxine Sodium 50 mcg QAM@0600 PO 09/05/24 06:00 09/05/24 06:13 50 MCG Melatonin 10 mg HS PO 09/04/24 22:00 09/04/24 22:02 10 MG Laboratory Results Laboratory Tests 09/03/24 05:20 Urinalysis Test 09/02/24 17:47 Urine Color Colorless (Yellow) Urine Clarity Clear (Clear) Urine pH 5.5 (5.0-9.0) Urine Specific [place] 1.003 (1.001-1.035) Urine Protein Negative (Negative) Urine Ketones Negative (Negative) Urine Blood Negative /uL (Negative) Urine Nitrite Negative (Negative) Urine Bilirubin Negative (Negative) Urine Urobilinogen Normal mg/dL (Negative) Urine Leukocyte Esterase Negative /uL (Negative) Urine RBC <1 /hpf (0 - 4) Urine Microscopic WBC < 1 /HPF (0-5) Urine Squamous Epithelial Cells Few /hpf (<5) Urine Bacteria None seen /hpf (None Seen) Urine Glucose Normal mg/dL (Normal) Labs and/or images reviewed: Labs reviewed by me, Image(s) reviewed by me Assessment/Plan Assessment/Plan Patient: -ACS -community-acquired pneumonia, right lower lobe -hypothyroidism Plan: Events: No symptoms overnight. -cardiology consultation: Stress test -ACS protocol -echocardiogram pending: Reviewed -Increase levothyroxine 50mcg -continue IV antibiotic therapy: Rocephin, azithromycin -Stress test tomorrow Total time spent with patient discussing and formulating plan of care: 35 minutes. This medical document was created using an electronic medical record system with [employer] dictation system. Although this document has been carefully reviewed, there may still be some phonetic and typographical errors. These areas are purely typographical due to imperfections of the software programs, and do not reflect any compromise in the patient's medical care. Plan discussed with: Patient, Other (RN) My Orders Orders - SHAHZAD MARCIAL NP Procedure Category Date Status Time Levothyroxine Tablet PHA 09/05/24 In Process (Synthroid Tablet) 06:00 Melatonin (Melatonin) PHA 09/04/24 In Process 22:00 Date of Service: Sep 05, 2024 Billing Provider: SHAHZAD MARCIAL NP Common Visit Codes: [id number] INP/OBS CARE(HIGH) SHAHZAD MARCIAL NP Sep 05, 2024 12:25
--- NOTE | 2024-09-05 14:02 | DVHSR ---
APPROVED REPORT Exam: Nuclear Stress Test BMI: 0 Stress Test Details HR Max Heart Rate (APMHR): 149 bpm Target HR (85% APMHR): 127 bpm BP ECG Resting ECG: Sinus Rhythm, nonspecific ST-T abnormalities Stress ECG: Sinus Rhythm, nonspecific ST-T abnormalities ST Change: None Stress ECG Conclusion The quality of the study is good. The stress and rest SPECT images demonstrate homogeneous radiotracer activity throughout the LV myoca rdium. There is no evidence of vasodilator induced myocardial ischemia. The left ventricular systolic function is preserved with a calculated ejection fraction of 76%. This is a normal myocardial perfusion study. NM EXAM: Myocardial Perfusion REST/STRESS Imaging Protocol: Rest Tc-99m/Stress Tc-99m 2 days Resting Data Rest SPECT myocardial perfusion imaging was performed in supine position 60 minutes following the int ravenous injection of 15.6 mCi of Tc-99m Sestamibi. Time of rest injection: 1330 Time of rest imagin Administration Route: IV Administration Site: Right Hand Pharmacologic Stress Pharmacologic stress test was performed by injecting Regadenoson 0.4 mg IV push followed by the intra venous injection of 30 mCi of Tc-99m Sestamibi. Time of stress injection: 1039 Time of stress imagin Administration Route: IV Administration Site: Right Hand Gated Stress SPECT was performed 60 minutes after stress injection. The images were gated to evaluate regional wall motion and calculate left ventricular ejection fracti on. Stress only was performed in the Supine position. Study Data Post stress, the left ventricular ejection was 76%.. Perfusion Normal perfusion on both the stress and rest images. Normal perfusion on the stress images. Nuclear Conclusion The quality of the study is good. The stress and rest SPECT images demonstrate homogeneous radiotracer activity throughout the LV myoca rdium. There is no evidence of vasodilator induced myocardial ischemia. The left ventricular systolic function is preserved with a calculated ejection fraction of 76%. This is a normal myocardial perfusion study.
[2024-09-05] MEDS ORDERED: LEVO50TA7 PO (16:57)
[2024-09-05] MEDS ORDERED: LEVO500T91 PO (16:57)
--- NOTE | 2024-09-05 17:11 | DVHDS2 ---
Discharge Summary Date of Admission Sep 02, 2024 at 19:00 Date of Discharge: Sep 05, 2024 Admitting Diagnosis Pneumonia Labs/Diagnostic Data: Laboratory Results Test 09/03/24 05:20 09/02/24 21:09 09/02/24 18:53 09/02/24 17:47 White Blood Count 5.4 10^3/uL (4.4-10.8) Red Blood Count 3.90 10^6/uL (4.0-5.20) Hemoglobin 12.0 g/dL (12.2-16.2) Hematocrit 35.2 % (36.0-46.0) Mean Corpuscular Volume 90.4 fL (80.0-100.0) Mean Corpuscular Hemoglobin 30.7 pg (28.0-32.0) Mean Corpuscular Hemoglobin Concent 34.0 g/dL (32.0-36.0) Red Cell Distribution Width 13.5 % (11.8-14.3) Platelet Count 219 10^3/uL (140-450) Mean Platelet Volume 8.0 fL (6.9-10.8) Neutrophils (%) (Auto) 62.6 % (37.0-80.0) Lymphocytes (%) (Auto) 24.0 % (10.0-50.0) Monocytes (%) (Auto) 11.2 % (0.0-12.0) Eosinophils (%) (Auto) 1.8 % (0.0-7.0) Basophils (%) (Auto) 0.4 % (0.0-2.0) Neutrophils # (Auto) 3.4 10 ^3/uL (1.6-8.6) Lymphocytes # (Auto) 1.3 10 ^3/uL (0.4-5.4) Monocytes # (Auto) 0.6 10 ^3/uL (0-1.3) Eosinophils # (Auto) 0.1 10 ^3/uL (0-0.8) Basophils # (Auto) 0 10 ^3/uL (0-0.2) Nucleated Red Blood Cells 0.1 % Sodium Level 140 mmol/L (136-145) Potassium Level 3.7 mmol/L (3.5-5.1) Chloride Level 105 mmol/L (98-107) Carbon Dioxide Level 27 mmol/L (20-31) Anion Gap 8 (5-15) Blood Urea Nitrogen 8 mg/dL (9-23) Creatinine 0.70 mg/dL (0.550-1.02) Glomerular Filtration Rate Calc 92 mL/min (>90) BUN/Creatinine Ratio 11.4 (10.0-20.0) Serum Glucose 84 mg/dL (74-106) Calcium Level 9.1 mg/dL (8.7-10.4) Creatine Kinase 118 U/L (34-145) Hepatitis B Surface Antigen Negative (Negative) Hepatitis C Antibody Negative (Negative) Troponin I High Sensitivity 10 ng/L (</=34) Thyroid Stimulating Hormone (TSH) 8.72 uIU/mL (0.55-4.78) Urine Color Colorless (Yellow) Urine Clarity Clear (Clear) Urine pH 5.5 (5.0-9.0) Urine Specific [place] 1.003 (1.001-1.035) Urine Protein Negative (Negative) Urine Ketones Negative (Negative) Urine Blood Negative /uL (Negative) Urine Nitrite Negative (Negative) Urine Bilirubin Negative (Negative) Urine Urobilinogen Normal mg/dL (Negative) Urine Leukocyte Esterase Negative /uL (Negative) Urine RBC <1 /hpf (0 - 4) Urine Microscopic WBC < 1 /HPF (0-5) Urine Squamous Epithelial Cells Few /hpf (<5) Urine Bacteria None seen /hpf (None Seen) Urine Glucose Normal mg/dL (Normal) Test 09/02/24 17:45 09/02/24 17:39 Influenza Type A Antigen Negative (Negative) Influenza Type B Antigen Negative (Negative) SARS-CoV-2 Antigen (Rapid) Negative (NEGATIVE) Magnesium Level 2.2 mg/dL (1.6-2.6) Total Bilirubin 0.6 mg/dL (0.2-1.0) Aspartate Amino Transferase (AST) 19 U/L (13-40) Alanine Aminotransferase (ALT) 18 U/L (7-40) Alkaline Phosphatase 81 U/L (46-116) B-Type Natriuretic Peptide 15.48 pg/mL (0-100) Total Protein 7.2 g/dL (5.7-8.2) Albumin 4.3 g/dL (3.2-4.8) Other Laboratory Tests 09/03/24 05:20 Brief Hx & Hospital Course: History of Present Illness 73-year-old female presents for evaluation of shortness for breath. Patient reports a three day history of shortness for breath with associated substernal chest pressure and intermittent upper and lower extremity numbness. Currently denies any symptoms. No unilateral weakness or slurred speech. No headache or blurred vision. No other acute complaints reported. Course of hospitalization: Further discussion with the patient reveals that she was had near syncopal episodes, paresthesia in both arms with substernal chest pressure that has been intermittent over the past one month. Cardiology consultation was obtained. Patient had negative troponins. EKG has also been without any ST changes. Echocardiogram also unremarkable. Cardiac stress test also negative for any ischemic changes. Findings were discussed with the patient. She was agreeable to be discharged home and follow up with her PCP in 1-2 weeks. Given her hypothyroidism, patient's levothyroxine will be increased to 50 mcg per day. She will be continued on antibiotic therapy with Levaquin 500 mg p.o. daily. Patient was agreeable with discharge plan. All questions answered. Physical examination General: Alert and Oriented x3. No acute distress. Well-nourished. Eyes: EOMI. Anicteric. HENT: Moist mucous membranes. Lungs: Clear to auscultation bilaterally. No accessory muscle use. Cardiovascular: Regular rate and rhythm. No murmur. No JVD. Abdomen: Soft, non-tender and non-distended. No palpable masses. Extremities: No edema. Non-tender. Skin: No rashes or lesions. Warm. Neurologic: No focal neurological deficits. CN II-XII grossly intact, but not individually tested. Psychiatric: Cooperative. Appropriate mood and affect. Total time spent with patient discussing and formulating plan of care: 35 minutes. This medical document was created using an electronic medical record system with [employer] dictation system. Although this document has been carefully reviewed, there may still be some phonetic and typographical errors. These areas are purely typographical due to imperfections of the software programs, and do not reflect any compromise in the patient's medical care. Consults/Reason for consult Cardiology: Rule out ACS Condition at Discharge: Fair Final Diagnosis/Problems List Ruled out ACS Pneumonia, community-acquired, probable Gram-positive/Gram-negative etiology -hypothyroidism Discharge Disposition: Home Discharge Instruct/Medications Diet: Regular Activity: No Restrictions, As Tolerated Follow Up/Referral: Dr. Castellanos in 1-2 weeks Medications: Levothyroxine 50mcg po daily Levaquin 500mg po daily x 5 days 36 Discharge Statement: "Patient was advised to return to the ER or call 911 if any headaches, dizziness, shortness of breath, chest pain, abdominal pain, bleeding, fevers, or worsening of medical condition. Patient was counseled about treatment plan, medications, possible side effects, patientverbalized understanding. All questions were answered to the best of my ability. This discharge took greater then 30 minutes in planning, reviewing documentation, counseling the patient, and discussing with other team members." ASSESSMENT ASSESSMENT Assessment Ruled out ACS Pneumonia Date of Service: Sep 05, 2024 Billing Provider: SHAHZAD MARCIAL NP Common Visit Codes: [id number] DISCH DAY >30min SHAHZAD MARCIAL NP Sep 05, 2024 17:11
--- NOTE | 2024-09-06 14:57 | DVHSR ---
APPROVED REPORT EXAM: Two-dimensional and M-mode echocardiogram with Doppler and color Doppler. Blood Pressure: 92/49 mmHg INDICATION ACS RISK FACTORS Height: 5'6", Weight: 138 DIMENSIONS LVDd4.6 (3.8-5.7cm)LA (2D)3.4 (1.9-4.0cm)Aortic Root3.4 (2.0-3.7cm) LVDs3.1 (2.5-4.0cm)LA (MM) (1.9-4.0cm)Aortic Cusp Exc1.7 (1.5-2.0cm) EF (%) 60.0 (55-70%)Rt. Atrium3.9 (1.9-4.0cm)Asc. Aorta cm IVSd1.0 (0.7-1.1cm)RV (D) (1.8-2.4cm) PWd0.9 (0.7-1.1cm) Mitral Valve MitralMitral Stenosis E wave0.80m/sMV Mean GR.mmHg A wave1.06m/sMV Peak GR.mmHg E/A ratio0.82D MVAcm2 DECEL [id number] 1/2 [place] Aortic Valve Aortic ValveAortic Stenosis V11.24m/Jun Mean GR.3mmHg V21.15m/Jun Peak GR.5mmHg LVOT Diameter1.8 (1.8-2.4cm)Doppler AVA2.74cm2 Pulmonic Valve V20.86m/s Tricuspid Valve TR Velocity2.31m/s [id number] Other Information Technically limited study due to body habitus. Conclusion Technically good study. Sinus rhythm. Normal chamber sizes. Valves are normal. Left ventricular function is preserved at 60% with normal RV function. No significant regurgitant jets. No pericardial effusion masses or vegetations.
== END 2024-09-05 18:43 | disposition home or self-care (01) | DRG 179 ==
LOC: ER 17:16 → OVERFLOW 19:00 → WEST WING 09-03 13:43 → EAST 09-04 21:38
PROVIDERS: ADMIT Nurse Practitioner Acute Care; ATTEND Nurse Practitioner Acute Care
DX: J15.69 Pneumonia due to other Gram-negative bacteria (principal); E87.6 Hypokalemia; E78.5 Hyperlipidemia, unspecified; E03.9 Hypothyroidism, unspecified; G62.9 Polyneuropathy, unspecified; F41.9 Anxiety disorder, unspecified; I48.91 Unspecified atrial fibrillation; J15.9 Unspecified bacterial pneumonia; Z90.49 Acquired absence of other specified parts of digestive tract; Z90.710 Acquired absence of both cervix and uterus; Z82.49 Family history of ischemic heart disease and other diseases of the circulatory system; Z79.899 Other long term (current) drug therapy
CPT/HCPCS: 36415; 70450; 71045; 78452; 80048; 80053; 81001; 82550; 83735; 83880; 84443; 84484; 85025; 86803; 87340; 87426; 87804; 93005; 93017; 93306; G0378

== ENCOUNTER 2025-04-28 10:26 | Outpatient (CLI) | payer MEDICARE, OTHER ==
[~2025-04-28 10:26] MED LIST changes: -LEVO25TA6 PO; +LEVO500T91 PO; +LEVO50TA7 PO
[2025-04-28 11:33] LABS: Urine Protein, UAD TRACE (Negative)
[2025-04-28 11:40] LABS: Hematocrit 37.1 % (36.0-46.0); Hemoglobin 12.8 g/dL (12.2-16.2); Mean Corpuscular Hemoglobin 31.3 pg (28.0-32.0); Mean Corpuscular Volume 90.6 fL (80.0-100.0); Nucleated Red Blood Cells % 0.0 %
[2025-04-28 12:07] LABS: Alanine Aminotransferase 12 U/L (7-40); Albumin 4.0 g/dL (3.2-4.8); Alkaline Phosphatase 82 U/L (46-116); Anion Gap 8 (5-15); BUN/Creatinine Ratio 16.1 (10.0-20.0); Bilirubin, Total 0.7 mg/dL (0.2-1.0); Blood Urea Nitrogen 14 mg/dL (9-23); Carbon Dioxide 29 mmol/L (20-31); Chloride 104 mmol/L (98-107); Glucose 90 mg/dL (74-106); HDL Cholesterol 44 mg/dL (40-59); Potassium 3.9 mmol/L (3.5-5.1); Sodium 141 mmol/L (136-145); Total Protein 7.7 g/dL (5.7-8.2); Triglycerides 142 mg/dL (< 150)
[2025-04-28 12:08] LABS: Calcium 8.5 mg/dL (8.7-10.4); Cholesterol 207 mg/dL (< 200)
== END 2025-04-28 17:00 | disposition home or self-care (01) ==
LOC: LAB 10:26
PROVIDERS: ATTEND Internal Medicine
DX: E03.9 Hypothyroidism, unspecified (principal); M85.80 Other specified disorders of bone density and structure, unspecified site
CPT/HCPCS: 36415; 80053; 80061; 81001; 82306; 84439; 84443; 85025; 85652